=== PATIENT | female | born 1985 | race Caucasian/White ===

== ENCOUNTER → 2020-07-14 09:30 | Outpatient (BNVA) | payer OTHER, SELFPAY | PROVIDERS: Family Provider Family Medicine; Visit Provider Obstetrics & Gynecology | DX: Z30.017 Encounter for initial prescription of implantable subdermal contraceptive (principal) | CPT/HCPCS: 81025 ==

== ENCOUNTER 2021-08-27 15:33 | Outpatient (CLI) | payer BC, SELFPAY ==
[2021-08-27 16:41] LABS: HCG Quantitative 2.08 mIU/mL
== END 2021-08-27 15:34 | disposition home or self-care (01) ==
PROVIDERS: PCP Family Medicine; Visit Provider Obstetrics & Gynecology
DX: N92.0 Excessive and frequent menstruation with regular cycle (principal)
CPT/HCPCS: 36415; 84702

== ENCOUNTER 2021-12-05 11:08 | Emergency (ER) | payer SELFPAY ==
[2021-12-05 11:53] VITALS: BP 118/74; PULSE 78; RESP 18; TEMP 36.8; O2SAT 99; BMI 39.2
--- NOTE | 2021-12-05 12:08 | ED_ITS ---
HPI - General Adult General: Chief complaint: General Medical Stated complaint: back and right hip pain Time Seen by Provider: 12/05/21 11:59 History of Present Illness: HPI narrative: Patient slipped is noted today felt a twist in her back and now she is got pain radiates down her right hip down to her ankle right side denies any other injuries and denies any significant health problems. MD complaint: Sciatica Onset (ago): day(s) Relieving factors: immobilization Exacerbating factors: movement Associated symptoms: Reports no associated symptoms; Deny chest pain, dyspnea, headache(s), nausea, rash or vomiting Review of Systems Const: Denies: fever(s), chills or body aches Eyes: Denies: change in vision or blurry vision ENMT: Denies: throat pain or nasal congestion Card: Denies: chest pain or dyspnea on exertion Resp: Denies: dyspnea, productive cough or non-productive cough GI: Denies: abdominal pain, nausea or vomiting Musc: Reports: back pain; Denies: extremity pain Skin/Breast: Denies: rash Neuro: Denies: headache(s) Psych: Denies: anxiety or depression Jaylon/Lymph: Denies: easy bruising PFSH ED PFSH: Medical History Contraception management Nexplanon insertion Surgical History H/O JEFRY Donohue- approximately 2010 S/P section Family History Brother Diabetes Mother Hypertension Other Clotting disorder Denies family history of Colon cancer Ovarian cancer Heart disease Hyperlipidemia Breast cancer Anesthesia complication Bleeding disorder Uterine cancer Thyroid condition Stroke Social History Smoking and tobacco status: never smoked Alcohol intake: current Alcohol intake frequency: holidays/special occasions only Alcohol type: wine Female Reproductive History: Date of last menstrual period: 11/22/21 Physical Exam Const: COMMON NORMALS: no acute distress, average body habitus and patient oriented x3 HENMT: COMMON NORMALS: normocephalic HEAD & SCALP: normal to inspection and normocephalic FACE & SINUS: normal facial exam Eye: COMMON NORMALS: conjunctivae normal GENERAL EYE: appearance normal, both eyes and all related structures CONJUNCTIVA: Yes conjunctivae normal Neck/C-Spine: COMMON NORMALS: no JVD Chest: COMMONS NORMALS: normal inspection of the chest Resp: COMMON NORMALS: normal respiratory effort Cardio: COMMON NORMALS: no JVD GI: INSPECTION: Yes normal to inspection Back/Pelvis: LUMBAR SPINE/LOWER BACK: Yes paraspinal muscle tenderness Lumbar paraspinal muscle tenderness: right OTHER: Tenderness to the sciatic nerve ranging from the buttock down across the thigh and no tenderness noted in the calf area. Patient does have pain with getting up from the chair and with leaning forward denies any numbness. Extremity: COMMON NORMALS: normal to inspection and full ROM Neuro: COMMON NORMALS: patient oriented x3 Course Vital Signs: Vital signs: Vital Signs Temperature 98.2 F 12/05/21 11:53 Pulse Rate 78 12/05/21 11:53 Respiratory Rate 18 12/05/21 11:53 Blood Pressure 118/74 12/05/21 11:53 Pulse Oximetry 99 12/05/21 11:53 Discharge Plan Discharge Patient Disposition: Home Clinical Impression: Acute lumbar radiculopathy Condition: Stable Prescriptions: New prednisone 20 mg tablet 20 mg PO DAILY Qty: 7 RF: 0 Celebrex 100 mg capsule 100 mg PO BID Qty: 20 RF: 0 cyclobenzaprine 5 mg tablet 5 mg PO TID PRN (Reason: muscle spasm) Qty: 10 RF: 0 No Action Nexplanon 68 mg implant subdermal RF: 0 lidocaine-epinephrine (PF) 2 %-1:200,000 solution 3 ml SUBCUT ONCE Qty: 20 RF: 0 povidone-iodine [Betadine Swabsticks] 10 % swab 1 applic topical ONCE Qty: 150 RF: 0 Discharge Orders: Discharge ED (Routine); Ordered 12/05/21 Ordered By: Valentin Clancy Referrals: Desmond Crowley MD [Primary Care Provider] - Discharge Diet: Usual diet Discharge Activity: Increase activity as tolerated Patient Instructions: Lumbar Radiculopathy (ED) Activity Restrictions/Additional Instructions: Follow-up with medical provider as directed. Take medications as prescribed. Return to the ER or your medical provider if condition worsens. Please read and understand discharge instructions. If any questions ask please. Take cyclobenzaprine for muscle spasms, Celebrex for pain and prednisone for inflammation in the low back. Can apply ice and then start alternate heat and ice after 36 hours. Possible visit chiropractor might be of benefit. No lifting over 10 pounds for next 3 to 4 weeks. 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
[2021-12-05 12:47] VITALS: BP 121/72; PULSE 77; RESP 18; TEMP 36.8; O2SAT 99
== END 2021-12-05 12:48 | disposition home or self-care (01) ==
PROVIDERS: Emergency Provider Nurse Practitioner Family; PCP Family Medicine
DX: M54.16 Radiculopathy, lumbar region (principal)
CPT/HCPCS: 99282

== ENCOUNTER 2022-05-08 17:56 | Emergency (ER) | payer BC, MEDICAID, SELFPAY ==
[2022-05-08 18:59] VITALS: BP 132/83; PULSE 90; RESP 18; TEMP 36.7; O2SAT 98; BMI 35.6
--- NOTE | 2022-05-08 20:11 | USR_ITS ---
PROCEDURE INFORMATION: Exam: US , Limited and US Duplex Artery or Vein, Ovaries, Limited Exam date and time: 05/08/2022 10:33 PM Age: 36 years old Clinical indication: Lmp or gestational age (in weeks): 8 weeks; Other: Spotting / cramping; ; Additional info: Vag bleeding TECHNIQUE: Imaging protocol: Real-time ultrasound of the maternal uterus with image documentation. Exam focused on the clinical indication. Real-time duplex ultrasound scan of the arterial or venous flow of the ovaries with B-mode, color Doppler flow and spectral waveform analysis, limited duplex. COMPARISON: No relevant prior studies available. FINDINGS: Gestation: Single live intrauterine gestation. Morphologically normal gestational sac, yolk sac and suboptimally visualized pole. heart rate: 131 beats per minute. Placenta: No subchorionic hemorrhage. BIOMETRY: Gestational age (AUA): 7 weeks 6 days by crown-rump length MATERNAL: Uterus: The uterus is anteverted. Uterine contours are normal. Right ovary/adnexa: The right ovary is morphologically normal. There is normal blood flow in the right ovary. The right ovary measures 3.6 x 3.3 x 2.1 cm. Left ovary/adnexa: The left ovary is morphologically normal. There is normal blood flow in the left ovary. The left ovary measures 5.1 x 3.7 x 1.8 cm. Urinary bladder: The urinary bladder is unremarkable. US/US OB limited [id number] IMPRESSION: 1. Single live intrauterine gestation of 7 weeks 6 days. No apparent complications. 2. Normal ovaries.
--- NOTE | 2022-05-08 21:06 | W.ED.GENADLT ---
Documented by User: Mir Norris MD 05/20/22 16:26 HPI - General Adult General: Chief complaint: Vaginal Bleeding Stated complaint: Wekks Preg,Spotting\Mild Cramping Low Grade Fever Time Seen by Provider: 05/08/22 20:11 History of Present Illness: Patient is a 36-year-old female G3, P1 at 8 weeks by LMP who presents the emergency room with 1 day of vaginal spotting and cramps. Patient tells me that she has had 1 prior miscarriages. Patient denies any passage of clots or heavy bleeding. Patient reports mild spotting around 1 PM. Patient denies any pelvic contractions. Patient denies any diarrhea melena/menses, complaints at this time. Patient has no nausea or vomiting, abdominal pain, or new vaginal discharge. Denies any cough, runny nose sore throat, chest pain or shortness breath. Onset: 12 hrs ago Duration:12 hrs Location:home Severity:moderate Associated symptoms: Deny chest pain, dyspnea, nausea, rash, palpitations or vomiting Review of Systems Const: Denies: fever(s) or chills Eyes: Denies: change in vision ENMT: Denies: mouth pain Card: Denies: chest pain or palpitations Resp: Denies: dyspnea or non-productive cough GI: Denies: abdominal pain, nausea, vomiting or diarrhea : Reports: other (pelvic cramps, vaginal spotting); Denies: dysuria Musc: Denies: extremity pain Skin/Breast: Denies: rash or new lesions Neuro: Denies: weakness in extremities Psych: Reports: other (Normal mood) Jaylon/Lymph: Denies: easy bruising PFSH ED PFSH: Medical History Contraception management Nexplanon insertion Surgical History H/O JEFRY Donohue- approximately 2010 S/P section Family History Brother Diabetes Mother Hypertension Other Clotting disorder Denies family history of Colon cancer Ovarian cancer Heart disease Hyperlipidemia Breast cancer Anesthesia complication Bleeding disorder Uterine cancer Thyroid condition Stroke Social History Smoking and tobacco status: never smoked Alcohol intake: current Alcohol intake frequency: holidays/special occasions only Alcohol type: wine Female Reproductive History: Date of last menstrual period: 11/22/21 Physical Exam Const: COMMON NORMALS: alert HENMT: COMMON NORMALS: atraumatic HEAD & SCALP: atraumatic MOUTH: moist mucous membranes not abnormal Eye: COMMON NORMALS: EOMs intact bilaterally and conjunctivae normal CONJUNCTIVA: Yes conjunctivae normal Neck/C-Spine: COMMON NORMALS: full ROM and supple Resp: COMMON NORMALS: normal respiratory effort and clear to auscultation bilaterally AUSCULTATION: clear to auscultation bilaterally Cardio: COMMON NORMALS: regular rate RATE: regular rate GI: COMMON NORMALS: Soft to palpation and non-tender PALPATION: Yes Soft to palpation OTHER: No focal TTP. NO guarding rebound, guarding, rigidity. No CVA tenderness to percussion. Neg White/Neg McBurney's point tenderness, no suprabupic tenderness to palpation. Extremity: COMMON NORMALS: full ROM Neuro: SENSORIUM/ORIENTATION: Yes alert MOTOR EXAM: No Abnormal motor strength present and Other motor observations present (no focal motor deficits) Psych: COMMON NORMALS: speech normal SPEECH: Yes normal speech MOOD & AFFECT: Yes euthymic mood Course Vital Signs: Vital signs: Vital Signs Temperature 98.0 F 05/08/22 18:59 Pulse Rate 77 05/09/22 00:30 Respiratory Rate 18 05/09/22 00:30 Blood Pressure 132/56 05/09/22 00:30 Pulse Oximetry 100 05/09/22 00:30 MDM - General Adult Medical Decision Making 36 at 8weeks by LMP the emergency room for vaginal spotting and pelvic cramps. I offered offered pelvic exam however patient declined. Patient is hemodynamically stable with no focal abdominal tenderness palpation. Hemoglobin 13.4 today. Patient's A+ from previous blood work and will not need RhoGAM. Ultrasound showed _. Lab Data : 05/08/22 21:30 05/08/22 21:30 Radiology Impressions Obstetrics Ultrasound 05/08/22 20:11 IMPRESSION: 1. Single live intrauterine gestation of 7 weeks 6 days. No apparent complications. 2. Normal ovaries. Laboratory Results WBC 11.6 10^3/uL (4.0-10.0) H 05/08/22 21:30 RBC 4.24 10^6/uL (4.1-5.3) 05/08/22 21: Hgb 13.4 g/dL (11.5-15.3) 05/08/22 21: Hct 38.9 % (37.0-47.0) 05/08/22 21: MCV 91.7 fl (81-99) 05/08/22 21: MCH 31.6 pg (28.0-34.0) 05/08/22: MCHC 34.4 g/dL (30.0-36.0) 05/08/22: RDW 12.7 % (12.1-15.1) 05/08/22: Plt Count 236 10^3/cmm (130-400) 05/08/22: MPV 10.6 fL (7.4-10.4) H 05/08/22 21: Neut % (Auto) 70.6 % 05/08/22: Lymph % (Auto) 19.4 % 05/08/22: [place] % (Auto) 8.9 % 05/08/22: Eos % (Auto) 0.4 % 05/08/22: Baso % (Auto) 0.3 % 05/08/22: Neut # (Auto) 8.20 10^3/uL (1.8-7.7) H 05/08/22: Lymph # (Auto) 2.3 10^3/uL (0.8-4.8) 05/08/22: [place] # (Auto) 1.0 10^3/uL (0.2-0.9) H 05/08/22 21: Eos # (Auto) 0.1 10^3/uL (0.0-0.8) 05/08/22: Baso # (Auto) 0.0 10^3/uL (0.0-0.1) 05/08/22: Nucleated RBC % (auto) 0 % 05/08/22: Nucleated RBCs # 0.0 /100WBC 05/08/22: Sodium 135 mmol/L (136-145) L 05/08/22: Potassium 3.3 mmol/L (3.5-5.1) L 05/08/22 21:30 Chloride 102 mmol/L (98-107) 05/08/22 21: Carbon Dioxide 22 mmol/L (22-29) 05/08/22 21:30 Anion Gap 14.3 (5-19) 05/08/22 21:30 BUN 7 mg/dL (6-20) 05/08/22 21: Creatinine 0.6 mg/dL (0.5-0.9) 05/08/22 21: GFR Calculation 114.4 mL/min (90-130) 05/08/22 21: Glucose 100 mg/dL (65-115) 05/08/22: Calculated Osmolality 278 mOsm/kg (285-295) L 05/08/22: Calcium 8.8 mg/dL (8.5-10.5) 05/08/22: Total Bilirubin 0.4 mg/dL (0.15-1.2) 05/08/22: AST 21 U/L (0-32) 05/08/22: ALT 49 U/L (0-33) H 05/08/22 21: Alkaline Phosphatase 68 IU/L (35-105) 05/08/22: Total Protein 7.1 g/dL (6.6-8.7) 05/08/22: Albumin 3.9 g/dL (3.5-5.2) 05/08/22: Globulin 3.2 g/dL (1.3-4.6) 05/08/22: Lipase 34 U/L (13-60) 05/08/22 21:30 Ser , Semi-Qnt 00131.00 mIU/mL 05/08/22 21:30 Blood Type A Positive 05/08/22 21:30 Rho(D) Type Positive 05/08/22 21: Discharge Plan Discharge Patient Disposition: Home Clinical Impression: Pelvic cramping, Vaginal bleeding before 22 weeks gestation Condition: Stable Prescriptions: No Action lidocaine-epinephrine (PF) 2 %-1:200,000 solution 3 ml SUBCUT ONCE Qty: 20 0RF povidone-iodine [Betadine Swabsticks] 10 % swab 1 applic topical ONCE Qty: 150 0RF amoxicillin-pot clavulanate 875-125 mg tablet 1 tab PO BID Qty: 14 0RF budesonide 90 mcg/actuation aerosol powdr breath activated 1 inh inhalation BID Qty: 1 0RF Discharge Orders: Discharge ED (Routine); Ordered 05/09/22 Ordered By: Clayton Rivera Referrals: Desmond Crowley MD [Primary Care Provider] - Discharge Diet: Advance as tolerated Discharge Activity: Increase activity as tolerated Activity Restrictions/Additional Instructions: Come back if you have any new or concerning issues. Please follow-up with your OB provider for further assessment of your symptoms today. Can back to the emergency room if you notice any heavy bleeding, worsening cramps, or any new concerning complaints. Stand Alone Forms: Work/School Release Sign Out Sign Out Data: Patient Sign Out occurred on 05/08/22 at 22:48. Patient's care was discussed, and care was transferred from to BARBER Jaquez. Coding Level of Care Code ED Conveyor System Operator for Chg Fwd Exam Comprehensive Documented by User: BARBER Jaquez 05/09/22 11:18 HPI - General Adult General: Chief complaint: Vaginal Bleeding Stated complaint: Wekks Preg,Spotting\Mild Cramping Low Grade Fever Time Seen by Provider: 05/08/22 20:11 [facility] ED PFSH: Medical History Contraception management Nexplanon insertion Surgical History H/O JEFRY Donohue- approximately 2010 S/P section Family History Brother Diabetes Mother Hypertension Other Clotting disorder Denies family history of Colon cancer Ovarian cancer Heart disease Hyperlipidemia Breast cancer Anesthesia complication Bleeding disorder Uterine cancer Thyroid condition Stroke Social History Smoking and tobacco status: never smoked Alcohol intake: current Alcohol intake frequency: holidays/special occasions only Alcohol type: wine Course Vital Signs: Vital signs: Vital Signs Temperature 98.0 F 05/08/22 18:59 Pulse Rate 77 05/09/22 00:30 Respiratory Rate 18 05/09/22 00:30 Blood Pressure 132/56 05/09/22 00:30 Pulse Oximetry 100 05/09/22 00:30 MDM - General Adult Medical Decision Making 36 at 8weeks by LMP the emergency room for vaginal spotting and pelvic cramps. I offered offered pelvic exam however patient declined. Patient is hemodynamically stable with no focal abdominal tenderness palpation. Hemoglobin 13.4 today. Patient's A+ from previous blood work and will not need RhoGAM. Ultrasound showed single live intrauterine with a gestation of 7 weeks and 6 days. No complications seen and normal ovaries. Patient was stable for discharge home and diagnosed with pelvic cramping and vaginal bleeding before 22 weeks gestation. She was told to follow-up with her OB doctor within the next week for reevaluation. Return ED precautions given. Patient understood and agreed with plan. Lab Data I reviewed the patient's lab results. : 05/08/22 21:30 05/08/22 21:30 Radiology Impressions Obstetrics Ultrasound 05/08/22 20:11 IMPRESSION: 1. Single live intrauterine gestation of 7 weeks 6 days. No apparent complications. 2. Normal ovaries. Laboratory Results WBC 11.6 10^3/uL (4.0-10.0) H 05/08/22 21: RBC 4.24 10^6/uL (4.1-5.3) 05/08/22 21:30 Hgb 13.4 g/dL (11.5-15.3) 05/08/22 21:30 Hct 38.9 % (37.0-47.0) 05/08/22 21: MCV 91.7 fl (81-99) 05/08/22 21:30 MCH 31.6 pg (28.0-34.0) 05/08/22 21:30 MCHC 34.4 g/dL (30.0-36.0) 05/08/22 21: RDW 12.7 % (12.1-15.1) 05/08/22 21: Plt Count 236 10^3/cmm (130-400) 05/08/22 21: MPV 10.6 fL (7.4-10.4) H 05/08/22 21: Neut % (Auto) 70.6 % 05/08/22 21: Lymph % (Auto) 19.4 % 05/08/22 21: [place] % (Auto) 8.9 % 05/08/22: Eos % (Auto) 0.4 % 05/08/22: Baso % (Auto) 0.3 % 05/08/22: Neut # (Auto) 8.20 10^3/uL (1.8-7.7) H 05/08/22: Lymph # (Auto) 2.3 10^3/uL (0.8-4.8) 05/08/22: [place] # (Auto) 1.0 10^3/uL (0.2-0.9) H 05/08/22: Eos # (Auto) 0.1 10^3/uL (0.0-0.8) 05/08/22: Baso # (Auto) 0.0 10^3/uL (0.0-0.1) 05/08/22: Nucleated RBC % (auto) 0 % 05/08/22: Nucleated RBCs # 0.0 /100WBC 05/08/22: Sodium 135 mmol/L (136-145) L 05/08/22: Potassium 3.3 mmol/L (3.5-5.1) L 05/08/22: Chloride 102 mmol/L (98-107) 05/08/22: Carbon Dioxide 22 mmol/L (22-29) 05/08/22: Anion Gap 14.3 (5-19) 05/08/22: BUN 7 mg/dL (6-20) 05/08/22: Creatinine 0.6 mg/dL (0.5-0.9) 05/08/22: GFR Calculation 114.4 mL/min (90-130) 05/08/22: Glucose 100 mg/dL (65-115) 05/08/22: Calculated Osmolality 278 mOsm/kg (285-295) L 05/08/22 21:30 Calcium 8.8 mg/dL (8.5-10.5) 05/08/22 21:30 Total Bilirubin 0.4 mg/dL (0.15-1.2) 05/08/22 21:30 AST 21 U/L (0-32) 05/08/22 21:30 ALT 49 U/L (0-33) H 05/08/22 21:30 Alkaline Phosphatase 68 IU/L (35-105) 05/08/22 21: Total Protein 7.1 g/dL (6.6-8.7) 05/08/22 21: Albumin 3.9 g/dL (3.5-5.2) 05/08/22 21: Globulin 3.2 g/dL (1.3-4.6) 05/08/22 21: Lipase 34 U/L (13-60) 05/08/22 21:30 Ser , Semi-Qnt 08649.00 mIU/mL 05/08/22 21:30 Blood Type A Positive 05/08/22 21:30 Rho(D) Type Positive 05/08/22 21:30 Discharge Plan Discharge Patient Disposition: Home Clinical Impression: Pelvic cramping, Vaginal bleeding before 22 weeks gestation Condition: Stable Prescriptions: No Action lidocaine-epinephrine (PF) 2 %-1:200,000 solution 3 ml SUBCUT ONCE Qty: 20 0RF povidone-iodine [Betadine Swabsticks] 10 % swab 1 applic topical ONCE Qty: 150 0RF amoxicillin-pot clavulanate 875-125 mg tablet 1 tab PO BID Qty: 14 0RF budesonide 90 mcg/actuation aerosol powdr breath activated 1 inh inhalation BID Qty: 1 0RF Discharge Orders: Discharge ED (Routine); Ordered 05/09/22 Ordered By: Clayton Rivera Referrals: Desmond Crowley MD [Primary Care Provider] - Discharge Diet: Advance as tolerated Discharge Activity: Increase activity as tolerated Activity Restrictions/Additional Instructions: Come back if you have any new or concerning issues. Please follow-up with your OB provider for further assessment of your symptoms today. Can back to the emergency room if you notice any heavy bleeding, worsening cramps, or any new concerning complaints. Stand Alone Forms: Work/School Release Sign Out Sign Out Data: Patient Sign Out occurred on 05/08/22 at 22:48. Patient's care was discussed, and care was transferred from to BARBER Jaquez. Coding Level of Care Code ED Conveyor System Operator for Chg Fwd Exam Comprehensive
[2022-05-08 21:42] LABS: Basophils % 0.3 %; Eosinophils # 0.1 10^3/uL (0.0-0.8); Eosinophils % 0.4 %; Hematocrit 38.9 % (37.0-47.0); Hemoglobin 13.4 g/dL (11.5-15.3); Lymphocytes # 2.3 10^3/uL (0.8-4.8); Lymphocytes % 19.4 %; Mean Corpuscular HGB Conc 34.4 g/dL (30.0-36.0); Mean Corpuscular Hemoglobin 31.6 pg (28.0-34.0); Mean Corpuscular Volume 91.7 fl (81-99); Mean Platelet Volume 10.6 fL (7.4-10.4); Monocytes % 8.9 %; Neutrophils % 70.6 %; Nucleated Red Blood Cells % 0 %; Platelet Count 236 10^3/cmm (130-400); Red Blood Count 4.24 10^6/uL (4.1-5.3); Red Cell Distribution Width 12.7 % (12.1-15.1); White Blood Count 11.6 10^3/uL (4.0-10.0)
[2022-05-08 22:21] LABS: Alanine Aminotransferase 49 U/L (0-33); Albumin Level 3.9 g/dL (3.5-5.2); Alkaline Phosphatase 68 IU/L (35-105); Anion Gap 14.3 (5-19); Aspartate Amino Transferase 21 U/L (0-32); Blood Urea Nitrogen 7 mg/dL (6-20); Calcium 8.8 mg/dL (8.5-10.5); Carbon Dioxide 22 mmol/L (22-29); Chloride 102 mmol/L (98-107); Globulin 3.2 g/dL (1.3-4.6); Glomerular Filtration Rate 114.4 mL/min (90-130); Glucose 100 mg/dL (65-115); Lipase 34 U/L (13-60); Osmolality Calculated 278 mOsm/kg (285-295); Potassium 3.3 mmol/L (3.5-5.1); Sodium 135 mmol/L (136-145); Total Bilirubin 0.4 mg/dL (0.15-1.2); Total Protein 7.1 g/dL (6.6-8.7)
[2022-05-09 00:30] VITALS: BP 132/56; PULSE 77; RESP 18; O2SAT 100
== END 2022-05-09 00:31 | disposition home or self-care (01) ==
PROVIDERS: Emergency Medicine; Emergency Provider Physician Assistant; PCP Family Medicine
DX: O20.9 Hemorrhage in early pregnancy, unspecified (principal); O26.891 Other specified pregnancy related conditions, first trimester; R10.2 Pelvic and perineal pain; Z3A.08 8 weeks gestation of pregnancy
CPT/HCPCS: 76815; 80053; 83690; 84702; 85025; 86900; 99283

== ENCOUNTER 2022-05-12 10:06 | Emergency (ER) | payer BC, MEDICAID, SELFPAY ==
[2022-05-12 10:10] VITALS: PULSE 101; RESP 18; TEMP 36.3; O2SAT 97; BMI 34.4
--- NOTE | 2022-05-12 11:05 | XR_ITS ---
WS: [id number] XR chest 1V portable [id number] REASON FOR EXAM: chest pain FINDINGS: The heart and mediastinum are within normal limits. Calcified granulomatous disease in both hemithoraces. No acute pulmonary parenchymal or pleural abnormality. No significant abnormality of the bony thorax. XR/XR chest 1V portable [id number] IMPRESSION: No acute chest abnormality.
--- NOTE | 2022-05-12 11:06 | ED_ITS ---
HPI - URI/Sore Throat General: Chief Complaint: Nausea/Vomiting/Diarrhea Stated Complaint: cough, n/v Time Seen by Provider: 05/12/22 10:10 Source: patient Mode of arrival: ambulatory Limitations: no limitations History of Present Illness: Patient is a 36-year-old female who presents to ED today with complaints of productive cough over the past 2 weeks. She is also having nasal congestion and sinus pain. Patient states she was seen at the walk-in clinic several days ago and was given instructions for conservative treatment as well as safe medication she can take during as she is 8 weeks . She states that she is continuing to have phlegm/sputum production and states when she coughs it will then make her nauseous and gag and throw up. She is not having any episodes of nausea or vomiting apart from when this was triggered by coughing and phlegm. She is not having any abdominal pain. Bowel movements been normal. No fevers. OB is Dr. Turner. elicited complaint: cough, nasal congestion and sinus pain Onset (ago): week(s) (2 weeks) Consistency: constant Severity: moderate Description of mucous: yellow and green Able to tolerate fluids by mouth: Yes Exacerbating factors: other Relieving factors: nothing Associated symptoms: Reports congestion, cough, nasal congestion, nausea, sinus pain and vomiting (when she gets choked up on phlegm; causes nausea); Deny abdominal pain, chills, chest pain, diarrhea, ear or mastoid pain, fever(s) or headache(s) Treatments prior to arrival: cold medicine Review of Systems Const: Denies: fever(s), chills, body aches, fatigue or malaise Eyes: Denies: change in vision ENMT: Reports: nasal discharge, nasal congestion and sinus pain; Denies: throat pain, odynophagia or ear or mastoid pain Card: Denies: chest pain, palpitations, lightheadedness, syncope or pre- syncope Resp: Reports: productive cough, change in phlegm color and chest congestion; Denies: dyspnea, wheezing or hemoptysis GI: Reports: nausea and vomiting (when she gets choked up on phlegm; causes nausea); Denies: abdominal pain or diarrhea : Denies: flank pain, dysuria or hematuria Musc: Denies: neck pain, back pain, extremity pain or joint pain Skin/Breast: Denies: rash Neuro: Denies: headache(s) PFSH ED PFSH: Medical History Contraception management Nexplanon insertion Surgical History H/O JEFRY Donohue- approximately 2010 S/P section Family History Brother Diabetes Mother Hypertension Other Clotting disorder Denies family history of Colon cancer Ovarian cancer Heart disease Hyperlipidemia Breast cancer Anesthesia complication Bleeding disorder Uterine cancer Thyroid condition Stroke Social History Smoking and tobacco status: never smoked Alcohol intake: current Alcohol intake frequency: holidays/special occasions only Alcohol type: wine Female Reproductive History: Date of last menstrual period: 11/22/21 Physical Exam Const: COMMON NORMALS: no acute distress, patient oriented x3, no limitations, alert and well nourished GENERAL APPEARANCE: cooperative ORIENTATION/CONSCIOUSNESS: Yes awake, Yes oriented to person, Yes oriented to place and Yes oriented to time HENMT: COMMON NORMALS: normocephalic, atraumatic and Normal external nose present HEAD & SCALP: normal to inspection, normocephalic and atraumatic FACE & SINUS: normal facial exam NOSE: Normal external nose present Eye: GENERAL EYE: appearance normal, both eyes and all related structures Neck/C-Spine: COMMON NORMALS: full ROM and no lymphadenopathy Resp: COMMON NORMALS: normal respiratory effort and clear to auscultation bilaterally AUSCULTATION: clear to auscultation bilaterally Cardio: COMMON NORMALS: regular rate and regular rhythm RATE: regular rate RHYTHM: regular rhythm Neuro: COMMON NORMALS: patient oriented x3 SENSORIUM/ORIENTATION: Yes alert, Yes oriented to person, Yes oriented to place and Yes oriented to time Skin: COMMON NORMALS: no rashes or lesions noted GENERAL SKIN EXAM: no rashes or lesions noted Course Vital Signs: Vital signs: Vital Signs Temperature 97.4 F L 05/12/22 10:10 Pulse Rate 101 H 05/12/22 10:10 Respiratory Rate 18 05/12/22 10:10 Pulse Oximetry 97 05/12/22 10:10 MDM - URI/Sore Throat Medical Decision Making Patient is a 36-year-old female at 8 weeks here for concerns of productive cough, nasal congestion and sinus pain. Patient states emphysema present for about 2 weeks now and do not seem to be improving. She feels like the sputum/phlegm is worsening and is now causing her to gag and vomit. I think it is reasonable at this time to place her on some Augmentin. Recommend continuing Robitussin as needed for the cough. Also discussed conservative therapies such as honey, lemon, elderberry syrup, humidifier etc to help loosen/thin mucus. Patient is requesting a primary care provider as she does not have one. Referral has been placed for this. Return to ED precautions verbally discussed. Discharge Plan Discharge Patient Disposition: Home Clinical Impression: Bronchitis Condition: Stable Prescriptions: New amoxicillin-pot clavulanate 875-125 mg tablet 1 tab PO BID Qty: 14 0RF No Action lidocaine-epinephrine (PF) 2 %-1:200,000 solution 3 ml SUBCUT ONCE Qty: 20 0RF povidone-iodine [Betadine Swabsticks] 10 % swab 1 applic topical ONCE Qty: 150 0RF Discharge Orders: Discharge ED (Routine); Ordered 05/12/22 Ordered By: Meliza Gonzalez Referrals: Dsemond Crowley MD [Primary Care Provider] - Coding Level of Care Code ED Soa Integration Developer for Chg Fwd Exam Detailed
[2022-05-12 12:45] VITALS: BP 115/67; PULSE 80; RESP 17; O2SAT 100
--- NOTE | 2022-05-12 14:03 | PC.SOCIAL ---
Addendum entered by Altagracia Lafleur 05/27/22 14:28: Patients appointment was cancelled Original Note: PCP Appointment Patient notified of appointment with Dr. Mensah scheduled for May 25 at 08:00.
[2022-05-12 14:48] LABS: Adenovirus Not Detected (NOT DETECT); Chlamydia Pneumoniae Not Detected (NOT DETECT); Coronavirus 229E,HKU1,NL63,OC4 Not Detected (NOT DETECT); Human Metapneumovirus Not Detected (NOT DETECT); Human Rhinovirus/Enterovirus Not Detected (NOT DETECT); Influenza A Not Detected (NOT DETECT); Influenza A H1 Not Detected (NOT DETECT); Influenza A H1-2009 Not Detected (NOT DETECT); Influenza A H3 Not Detected (NOT DETECT); Influenza B Not Detected (NOT DETECT); Mycoplasma Pneumoniae Not Detected (NOT DETECT); Parainfluenza Virus Type 1 Not Detected (NOT DETECT); Parainfluenza Virus Type 2 Not Detected (NOT DETECT); Parainfluenza Virus Type 3 Not Detected (NOT DETECT); Parainfluenza Virus Type 4 Not Detected (NOT DETECT); Respiratory Syncytial Virus A Not Detected (NOT DETECT); Respiratory Syncytial Virus B Not Detected (NOT DETECT); SARS-COV-2 Not Detected (NOT DETECT)
== END 2022-05-12 12:29 | disposition home or self-care (01) ==
PROVIDERS: Emergency Provider Physician Assistant; PCP Family Medicine
DX: J40 Bronchitis, not specified as acute or chronic (principal); Z20.822 Contact with and (suspected) exposure to COVID-19
CPT/HCPCS: 71045; 87635; 99283

== ENCOUNTER 2022-05-13 07:41 | Outpatient (CLI) | payer BC, MEDICAID, SELFPAY ==
--- NOTE | 2022-05-13 07:46 | US_ITS ---
WS: [id number] EARLY OBSTETRICAL ULTRASOUND (<14 WEEKS). HISTORY: Z34.90 - Encounter for supervision of normal COMPARISON: 05/08/2022 Single intrauterine gestational sac is identified. Cardiac activity at 157 BPM. [place]-rump length tim sures 1.1 cm which corresponds to a gestation of 7w1d. Normal-appearing yolk sac and amnion demonstra santos. No subchorionic hemorrhage. No free fluid. Normal size ovaries with no mass. Note: Please note there is a discrepancy of age as compared to the prior study of 05/08/2022. Th e gestational age associated with today's examination is more accurate. The measurements on the prior study were not accurate and included more than just the pole. US/US OB transvaginal [id number] IMPRESSION: 1. Single intrauterine gestation of 7 weeks 1 day with an EDC of 12/29/2022. 2. Normal cardiac activity.
== END 2022-05-13 07:42 | disposition home or self-care (01) ==
PROVIDERS: PCP Family Medicine; Visit Provider Obstetrics & Gynecology
DX: Z34.90 Encounter for supervision of normal pregnancy, unspecified, unspecified trimester (principal)
CPT/HCPCS: 76817

== ENCOUNTER → 2022-05-23 14:27 | Outpatient (BNVA) | payer BC, MEDICAID, SELFPAY | PROVIDERS: PCP Family Medicine; Visit Provider Obstetrics & Gynecology | DX: Z34.90 Encounter for supervision of normal pregnancy, unspecified, unspecified trimester (principal) | CPT/HCPCS: 80307; 81000; 85027; 86592; 86762; 86803; 86850; 86900; 87086; 87340; 87806 ==

== ENCOUNTER → 2022-06-03 00:01 | Outpatient (BNVA) | payer BC, MEDICAID, SELFPAY | PROVIDERS: PCP Family Medicine; Visit Provider Obstetrics & Gynecology | DX: Z34.91 Encounter for supervision of normal pregnancy, unspecified, first trimester (principal) | CPT/HCPCS: 81003; 87491; 87591; 87624 ==

== ENCOUNTER → 2022-07-15 15:45 | Outpatient (BNVA) | payer BC, MEDICAID, SELFPAY | PROVIDERS: PCP Family Medicine; Visit Provider Nurse Practitioner Women's Health | DX: Z34.90 Encounter for supervision of normal pregnancy, unspecified, unspecified trimester (principal); O34.40 Maternal care for other abnormalities of cervix, unspecified trimester; Z98.890 Other specified postprocedural states; Z34.91 Encounter for supervision of normal pregnancy, unspecified, first trimester; O34.219 Maternal care for unspecified type scar from previous cesarean delivery | CPT/HCPCS: 81000 ==

== ENCOUNTER → 2022-07-28 16:17 | Outpatient (BNVA) | payer BC, MEDICAID, SELFPAY | PROVIDERS: PCP Family Medicine; Visit Provider Obstetrics & Gynecology | DX: Z36.86 Encounter for antenatal screening for cervical length (principal) | CPT/HCPCS: 76830 ==

== ENCOUNTER → 2022-08-12 14:56 | Outpatient (BNVA) | payer BC, MEDICAID, SELFPAY | PROVIDERS: PCP Family Medicine; Visit Provider Obstetrics & Gynecology | DX: Z36.87 Encounter for antenatal screening for uncertain dates (principal) | CPT/HCPCS: 76805; 76817 ==

== ENCOUNTER → 2022-08-15 15:12 | Outpatient (BNVA) | payer BC, MEDICAID, SELFPAY | PROVIDERS: PCP Family Medicine; Visit Provider Obstetrics & Gynecology | DX: Z34.90 Encounter for supervision of normal pregnancy, unspecified, unspecified trimester (principal) | CPT/HCPCS: 81000 ==

== ENCOUNTER → 2022-08-25 16:22 | Outpatient (BNVA) | payer BC, MEDICAID, SELFPAY | PROVIDERS: PCP Family Medicine; Visit Provider Obstetrics & Gynecology | DX: O26.879 Cervical shortening, unspecified trimester (principal); Z3A.00 Weeks of gestation of pregnancy not specified | CPT/HCPCS: 76817 ==

== ENCOUNTER → 2022-09-06 16:11 | Outpatient (BNVA) | payer BC, MEDICAID, SELFPAY | PROVIDERS: PCP Family Medicine; Visit Provider Obstetrics & Gynecology | DX: O99.342 Other mental disorders complicating pregnancy, second trimester (principal); F32.A Depression, unspecified; O34.219 Maternal care for unspecified type scar from previous cesarean delivery; O34.40 Maternal care for other abnormalities of cervix, unspecified trimester; Z98.890 Other specified postprocedural states; Z3A.00 Weeks of gestation of pregnancy not specified | CPT/HCPCS: 81000 ==

== ENCOUNTER → 2022-09-13 09:15 | Outpatient (BNVA) | payer BC, MEDICAID, SELFPAY | PROVIDERS: PCP Family Medicine; Visit Provider Obstetrics & Gynecology | DX: Z34.92 Encounter for supervision of normal pregnancy, unspecified, second trimester (principal) | CPT/HCPCS: 82950 ==

== ENCOUNTER → 2022-09-16 08:00 | Outpatient (BNVA) | payer BC, MEDICAID, SELFPAY | PROVIDERS: PCP Family Medicine; Visit Provider Obstetrics & Gynecology | DX: Z34.92 Encounter for supervision of normal pregnancy, unspecified, second trimester (principal) | CPT/HCPCS: 82951; 82952 ==

== ENCOUNTER 2022-10-13 09:23 | Outpatient (CLI) | payer BC, MEDICAID, SELFPAY ==
[2022-10-13 10:03] LABS: Hematocrit 37.8 % (37.0-47.0); Hemoglobin 12.7 g/dL (11.5-15.3); Mean Corpuscular HGB Conc 33.6 g/dL (30.0-36.0); Mean Corpuscular Hemoglobin 32.6 pg (28.0-34.0); Mean Corpuscular Volume 97.2 fl (81-99); Mean Platelet Volume 10.4 fL (7.4-10.4); Platelet Count 244 10^3/cmm (130-400); Red Blood Count 3.89 10^6/uL (4.1-5.3); Red Cell Distribution Width 14.3 % (12.1-15.1); White Blood Count 7.4 10^3/uL (4.0-10.0)
[2022-10-13 10:23] LABS: Protein Urine Neg (Negative); Urine Appearance Hazy (CLEAR); Urine Color Yellow (Yellow); pH Urine 6 (5-7)
[2022-10-13 10:24] LABS: Add Urine Microscopic? YES; Bilirubin Urine Neg (Negative); Blood Urine Neg (Negative); Glucose Urine UA 4+ (Normal); Ketones Urine Negative (Negative); Leukocyte Esterase Urine Negative (Negative); Nitrate Urine Negative (Negative); Urobilinogen Urine Neg (Negative)
[2022-10-13 10:32] LABS: Add Urine Culture? No; Bacteria Urine 2+ /hpf; Mucus Urine 1+ /hpf; RBC Urine RARE /hpf (0-2); Squamous Epithelial Cell Urine 25-40 /hpf (0-5); WBC Urine RARE /hpf (0-5)
== END 2022-10-13 09:24 | disposition home or self-care (01) ==
LOC: LAB 09:26
PROVIDERS: PCP Family Medicine; Visit Provider Obstetrics & Gynecology
DX: Z34.92 Encounter for supervision of normal pregnancy, unspecified, second trimester (principal)
CPT/HCPCS: 36415; 81001; 85027

== ENCOUNTER → 2022-10-25 14:00 | Outpatient (BNVA) | payer BC, MEDICAID, SELFPAY | PROVIDERS: PCP Family Medicine; Visit Provider Obstetrics & Gynecology | DX: Z34.90 Encounter for supervision of normal pregnancy, unspecified, unspecified trimester (principal) | CPT/HCPCS: 81000 ==

== ENCOUNTER → 2022-11-08 15:00 | Outpatient (BNVA) | payer BC, MEDICAID, SELFPAY | PROVIDERS: PCP Family Medicine; Visit Provider Obstetrics & Gynecology | DX: Z34.93 Encounter for supervision of normal pregnancy, unspecified, third trimester (principal) | CPT/HCPCS: 81000 ==

== ENCOUNTER → 2022-11-22 09:40 | Outpatient (BNVA) | payer BC, MEDICAID, SELFPAY | PROVIDERS: PCP Family Medicine; Visit Provider Obstetrics & Gynecology | DX: Z34.90 Encounter for supervision of normal pregnancy, unspecified, unspecified trimester (principal) | CPT/HCPCS: 81000 ==

== ENCOUNTER → 2022-11-29 11:17 | Outpatient (BNVA) | payer BC, MEDICAID, SELFPAY | PROVIDERS: PCP Family Medicine; Visit Provider Obstetrics & Gynecology | DX: Z34.90 Encounter for supervision of normal pregnancy, unspecified, unspecified trimester (principal) | CPT/HCPCS: 81000 ==

== ENCOUNTER → 2022-12-05 14:30 | Outpatient (BNVA) | payer BC, MEDICAID, SELFPAY | PROVIDERS: PCP Family Medicine; Visit Provider Obstetrics & Gynecology | DX: Z34.90 Encounter for supervision of normal pregnancy, unspecified, unspecified trimester (principal) | CPT/HCPCS: 87081 ==

== ENCOUNTER → 2022-12-12 13:51 | Outpatient (BNVA) | payer BC, MEDICAID, SELFPAY | PROVIDERS: PCP Family Medicine; Visit Provider Obstetrics & Gynecology | DX: O34.219 Maternal care for unspecified type scar from previous cesarean delivery (principal); O99.342 Other mental disorders complicating pregnancy, second trimester; F32.A Depression, unspecified; O34.40 Maternal care for other abnormalities of cervix, unspecified trimester; Z98.890 Other specified postprocedural states; Z3A.00 Weeks of gestation of pregnancy not specified | CPT/HCPCS: 81000 ==

== ENCOUNTER → 2022-12-14 10:26 | Outpatient (BNVA) | payer BC, MEDICAID, SELFPAY | PROVIDERS: PCP Family Medicine; Visit Provider Obstetrics & Gynecology | DX: Z36.87 Encounter for antenatal screening for uncertain dates (principal) | CPT/HCPCS: 76816 ==

== ENCOUNTER → 2022-12-20 08:31 | Outpatient (BNVA) | payer BC, MEDICAID, SELFPAY | PROVIDERS: PCP Family Medicine; Visit Provider Obstetrics & Gynecology | DX: Z34.90 Encounter for supervision of normal pregnancy, unspecified, unspecified trimester (principal) | CPT/HCPCS: 81000 ==

== ENCOUNTER 2022-12-22 05:04 | Inpatient (IN) | payer BC, MEDICAID, SELFPAY ==
--- NOTE | 2022-12-12 14:48 | P.ANESASSM_ITS ---
Pre-Anesthetic Assessment Height/Weight: Height 1.57 m Operation Date: 12/22/22 07:00 Proposed Procedures p Section Repeat 22292,O34.219(Not Applicable) - Chandra Turner MD Familial anesthetic complications: none Was Beta Ngoc taken within 24 hours: N/A Was Clonidine taken within 24 hours: N/A Social No alcohol and No tobacco Exam alert, oriented x 3, clear to auscultation bilaterally and regular rate & rhythm Airway Submandibular: within normal limits Cervical ROM: within normal limits Mallampati: Class II Dentition: chipped Neuropsych Depression Anesthetic Plan ASA status: 2 Anesthesia: Regional (specify below) (SAB for repeat C/S) Medications/Allergies Home Medications Medication Instructions Recorded Confirmed Last Taken Type acetaminophen 500 mg tablet 500 mg PO Q6H PRN 05/23/22 12/12/22 Unknown History (Tylenol Extra Strength) ascorbate calcium (vitamin C) 500 500 mg PO DAILY 05/23/22 12/12/22 Unknown History mg tablet doxylamine succinate 25 mg tablet 25 mg PO .at hs PRN 06/03/22 12/12/22 Unknown History (Unisom (doxylamine)) PNV 153-FA 400 mcg-om3 35 mg-dha tab PO 07/15/22 12/12/22 Unknown History 25 mg-epa 5 mg-fish oil chew tablet ( Gummies) sertraline 25 mg tablet (Zoloft) 25 mg PO DAILY Depression #60 tabs 10/25/22 12/12/22 Unknown Rx famotidine 20 mg tablet 20 mg PO BID 11/08/22 12/12/22 Unknown History Allergies Allergy/AdvReac Type Severity Reaction Status Date / Time No Known Allergies Allergy Verified 12/12/22 11:06 [facility] Anesthesia Medical History No pertinent past medical history neghx:htn,dm,thyroid,dvt/pe PCP: Surgical History H/O JEFRY Donohue- approximately 2010 S/P section Primary emergent section due to nonreassuring heart tones. Family History Brother Diabetes Mother Hypertension Other Clotting disorder Denies family history of Colon cancer Ovarian cancer Heart disease Hyperlipidemia Breast cancer Anesthesia complication Bleeding disorder Uterine cancer Thyroid condition Stroke Social History Smoking and tobacco status: never smoked Female Reproductive History Date of last menstrual period: 11/22/21 Data Anesthesia Cardiac Studies: No Data to Display
[2022-12-22] VITALS (33 sets, daily range): BP systolic 90–145; BP diastolic 52–87; PULSE 55–99; RESP 15–18; TEMP 35.8; O2SAT 98–100; BMI 51.4
[2022-12-22] MEDS: lactated ringers 1,000 ML 999 ML IV (05:35)
[2022-12-22 05:38] LABS: Basophils % 0.5 %; Eosinophils # 0.1 10^3/uL (0.0-0.8); Eosinophils % 0.6 %; Hematocrit 39.4 % (37.0-47.0); Hemoglobin 13.5 g/dL (11.5-15.3); Lymphocytes # 2.7 10^3/uL (0.8-4.8); Lymphocytes % 32.1 %; Mean Corpuscular HGB Conc 34.3 g/dL (30.0-36.0); Mean Corpuscular Hemoglobin 31.8 pg (28.0-34.0); Mean Corpuscular Volume 92.7 fl (81-99); Mean Platelet Volume 11.8 fL (7.4-10.4); Monocytes # 0.8 10^3/uL (0.2-0.9); Monocytes % 9.6 %; Neutrophils # 4.72 10^3/uL (1.8-7.7); Neutrophils % 57.1 %; Nucleated Red Blood Cells % 0 %; Platelet Count 207 10^3/cmm (130-400); Red Blood Count 4.25 10^6/uL (4.1-5.3); Red Cell Distribution Width 13.5 % (12.1-15.1); White Blood Count 8.3 10^3/uL (4.0-10.0)
[2022-12-22] MEDS: famotidine 20 mg/2 mL INJ IVP (06:43)
[2022-12-22] MEDS: metoclopramide 5 mg/mL SDV 2 mL 10 MG IVP (06:43)
[2022-12-22] MEDS: citric acid-sodium citrate 30 mL UDC PO (06:43)
--- NOTE | 2022-12-22 07:00 | PM.OPHPUD ---
Labor & Delivery H&P Update Date of Procedure: December 22, 2022 Date H&P Performed: 12/20/22 H&P update information: I have reviewed H&P completed within last 30 days, I have examined patient prior to procedure and Changes to prior documentation as noted here Admission Diagnosis: Planned procedure: Operation Date: 12/22/22 07:00 Proposed Procedures p Section Repeat 68612,O34.219(Not Applicable) - Chandra Turner MD
[2022-12-22] MEDS: ceFAZolin 2,000 MG in sodium chloride 0.9% (plus) 50 ML 100 MG IV (07:10)
--- NOTE | 2022-12-22 08:44 | PM.OP ---
Operative Report Date of procedure: December 22, 2022 Pre-op diagnosis: Current . Previous delivery. Post-op diagnosis: Same as above Procedure done: Repeat low-transverse delivery Surgeon: Chandra Turner MD Estimated blood loss (mL): 300 IV fluids (mL): 1,500 Urine output (mL): 100 Complications: None Procedure: After assuring informed consent, the patient was taken to the operating room and anesthesia was initiated. She was placed in the dorsal supine position with a left lateral tilt. The abdomen was prepped and draped in the usual sterile manner. A time-out procedure was performed. A Pfannenstiel skin incision was made with the scalpel and carried through to the underlying layer of fascia with the Bovie. The fascia was nicked in the midline and the incision extended laterally with the Mcdonough scissors. The superior aspect of the fascial incision was then grasped with Cecil clamps and elevated and the underlying rectus muscle dissected off bluntly and sharp with mcdonough scissors dense adhesions. Attention was then turned to the inferior aspect of the incision which, in similar fashion, was grasped and tented up with Cecil clamps and the rectus muscle dissected bluntly. The rectus muscles were then in the midline and the peritoneum identified, tented up and entered sharply with Metzenbaum scissors. The peritoneal incision was then extended superiorly and inferiorly with good visualization of the bladder. The Noé O retractor was then inserted and the vesicouterine peritoneum identified, grasped with pickups and entered sharply with Metzenbaum scissors. This incision was then extended laterally and the bladder flap created digitally. The uterus incised in a low transverse fashion with the scalpel. The uterine incision was then extended with the bandage scissors. The was then delivered in the cephalic presentation atraumatically . The nose and the mouth were suctioned with bulb and the cord clamped and cut. The cord was normal and had three vessels. Amniotic fluid was clear. The placenta was then removed manually and the uterus exteriorized and cleared of all clots and debris. The uterine incision was repaired with 0 Vicryl in a running-locked fashion. A second layer of the same suture was used to obtain excellent hemostasis. The gutters were cleared of all clots. The uterus was then returned to the abdomen. The rectus muscles were approximated with 3-0 chromic gut. The fascia was reapproximated with 0 Vicryl in an interrupted running fashion. The skin was closed with Insorb?s subcuticular absorbable bayron. Exparel was infused at incision site for pain management. The patient tolerated the procedure well. The sponge, lap and needle counts were correct times three. The patient was given antibiotics intravenously before incision.
[2022-12-22] MEDS: dextrose 5%-lactated ringers 1,000 ML 125 ML IV (12:08)
[2022-12-22] MEDS: ketorolac 30 mg/mL INJ IVP ×2 (12:14→20:01)
--- NOTE | 2022-12-22 17:18 | ANE.PACU2 ---
Inpatient post-anesthesia follow up: Airway intact: Yes Vital signs: Temperature 96.4 F Pulse Rate 80 Respiratory Rate 16 Blood Pressure 90/56 Pulse Oximetry 99 Oxygen Delivery Me thod Room Air Oxygen Flow Rate Fraction of Inspir ed Oxygen Hydration adequate: Yes Nausea and vomiting: No Pain level: 1 Mental status: Baseline
[2022-12-22] MEDS: docusate sodium 100 mg Capsule PO (20:01)
[2022-12-22 21:04] LABS: Hematocrit 35.5 % (37.0-47.0); Hemoglobin 11.9 g/dL (11.5-15.3); Mean Corpuscular HGB Conc 33.5 g/dL (30.0-36.0); Mean Corpuscular Hemoglobin 31.6 pg (28.0-34.0); Mean Corpuscular Volume 94.4 fl (81-99); Mean Platelet Volume 11.6 fL (7.4-10.4); Platelet Count 173 10^3/cmm (130-400); Red Blood Count 3.76 10^6/uL (4.1-5.3); Red Cell Distribution Width 13.4 % (12.1-15.1); White Blood Count 8.3 10^3/uL (4.0-10.0)
[2022-12-23 03:39] VITALS: BP 101/59; PULSE 72
[2022-12-23] MEDS: ketorolac 30 mg/mL INJ IVP (03:50)
--- NOTE | 2022-12-23 08:08 | PM.PN ---
Subjective Subjective: Mrs. Ying 37-year-old female is status post repeat low-transverse delivery postoperative day 1 Vitals/I&O/Wt Last Vital Signs Temp 96.4 F L 12/22/22 05:21 Pulse 72 12/23/22 03:39 Resp 16 12/22/22 12:22 BP 101/59 12/23/22 03:39 Pulse Ox 99 12/22/22 09:15 O2 Del Method 12/22/22 09:15 12/22/22 12/23/22 12/23/22 22:59 06:59 14:59 Intake Total 1500 / 1650 Output Total 850 / 1150 Balance 650 / 500 Weight last 48 hrs Weight 82.1 kg Weight 127.459 kg Physical Exam Narrative: GA: Alert and oriented ?3. HEENT: WNL. Heart: Regular rate and rhythm. Lungs: Clear to auscultation bilaterally. Abdomen: Bowel sounds present, nontender, minimal tenderness, incision clean and dry, no redness, pain or edema. Uterine fundus below umbilicus. No Fundal Tenderness. 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 Urinary Catheter Management: Olivas Latex: Cath Placed During This Visit: yes, but has since been removed by the nurse Reason for Continuing Indwelling Catheter: Decision to DC Catheter Urinary Catheter Date of Insertion: 12/22/22 Urinary Catheter Time of Insertion: 07:27 Date Urinary Catheter Removed: 12/22/22 Time Urinary Catheter Discontinued: 19:10 Data 12/22/22 20:41 A&P Assessment and plan (1) Status post repeat low transverse section: Mrs. Ying is status post primary light repeat low-transverse delivery postoperative day 1. Afebrile and hemodynamically stable. Tolerating diet well. Ambulating without difficulty. Pain well under control. Plan Continue postop observation Attestations Medical Necessity Statement*: My professional opinion per admitting diagnosis Coding Level of Care Code Acute Code for Chg Fwd Diagnoses Status post repeat low transverse section Z98.891
[2022-12-23] MEDS: lactated ringers 1,000 ML 125 ML IV (08:37)
[2022-12-23] MEDS: docusate sodium 100 mg Capsule PO ×2 (08:56→20:29)
[2022-12-23] MEDS: acetaminophen 325 mg Tablet 650 MG PO (08:56)
[2022-12-23] MEDS: prenatal vitamin Capsule 1 CAP PO (08:56)
[2022-12-23 10:25] VITALS: BP 104/69; PULSE 64; RESP 16; TEMP 36.8; O2SAT 98
--- NOTE | 2022-12-23 10:30 | PC.NURSE ---
Patient up to ambulate OBGYN floor without assistance. MARIAN RN
--- NOTE | 2022-12-23 11:45 | PC.NURSE ---
Patient states she has passed gas. MARIAN MCLEOD
[2022-12-23] MEDS: ibuprofen 800 mg tablet PO ×2 (13:56→20:29)
[2022-12-23 15:02] VITALS: BP 108/66; PULSE 80; RESP 15; TEMP 36.7; O2SAT 95
[2022-12-23 20:33] VITALS: BP 101/53; PULSE 72; TEMP 36.1
[2022-12-24 04:00] VITALS: BP 108/62; PULSE 64; RESP 16; TEMP 36.8; O2SAT 99
--- NOTE | 2022-12-24 08:37 | PM.OBGYDC ---
Discharge Providers RESEARCH PHLEBOTOMIST Date of Admission: 12/22/22 05:04 Date of Discharge: 12/24/22 Attending Provider at Admission: Chandra Turner MD Attending Provider at Discharge: Chandra Turner MD Primary Care Provider: Rayo Mensah DO Diagnoses at Discharge Discharge Diagnosis (1) Status post repeat low transverse section: Status: Acute Reason for Visit Reason for Visit: SCHEDULED Hospital Course Hospital Course Ms. Ying is a 37 y/o established patient with a LMP of 02/26/2022 and an EDC of 12/29/2022 based on first trimester ultrasound. Admitted at 39 weeks for repeat low-transverse delivery. delivery was performed without complication.. Observation has been uneventful. She is afebrile and hemodynamically stable postoperative day 2. Tolerating diet well. Ambulating without difficulty. Pain well under control. He was counseled regarding pelvic rest for 6 weeks (no sex, no tampons, no vaginal douches). Return to the emergency room if any fever, increased bleeding or pain. Information Peripartum Data: Infant Delivery Method: Physical Exam Narrative: GA; alert and oriented x 3 HEENT: normal Breasts: engorged Nipples - skin intact Lungs; clear to auscultation Heart: regular rhythm, no murmurs. Abd: Appropriately tender. BS+. Uterine fundus below umbilicus. No Fundal Tenderness. Incision clean and dry, no redness, pain or edema. Perineum: normal lochia. Extremities: no edema, no cyanosis, no tenderness. Urinary Catheter Management: Olivas Latex: Cath Placed During This Visit: yes, but has since been removed by the nurse Reason for Continuing Indwelling Catheter: Decision to DC Catheter Urinary Catheter Date of Insertion: 12/22/22 Urinary Catheter Time of Insertion: 07:27 Date Urinary Catheter Removed: 12/22/22 Time Urinary Catheter Discontinued: 19:10 History History History 3 Term 1 0 Miscarriages/Ectopic 1 Living Children 1 Discharge Data Studies Completed and Pending Laboratory Results WBC 8.3 10^3/uL (4.0-10.0) 12/22/22 20:41 RBC 3.76 10^6/uL (4.1-5.3) L 12/22/22 20:41 Hgb 11.9 g/dL (11.5-15.3) 12/22/22 20:41 Hct 35.5 % (37.0-47.0) L 12/22/22 20:41 MCV 94.4 fl (81-99) 12/22/22 20:41 MCH 31.6 pg (28.0-34.0) 12/22/22 20:41 MCHC 33.5 g/dL (30.0-36.0) 12/22/22 20:41 RDW 13.4 % (12.1-15.1) 12/22/22 20:41 Plt Count 173 10^3/cmm (130-400) 12/22/22 20:41 MPV 11.6 fL (7.4-10.4) H 12/22/22 20:41 Neut % (Auto) 57.1 % 12/22/22 05:30 Lymph % (Auto) 32.1 % 12/22/22 05:30 [place] % (Auto) 9.6 % 12/22/22 05:30 Eos % (Auto) 0.6 % 12/22/22 05:30 Baso % (Auto) 0.5 % 12/22/22 05:30 Neut # (Auto) 4.72 10^3/uL (1.8-7.7) 12/22/22 05:30 Lymph # (Auto) 2.7 10^3/uL (0.8-4.8) 12/22/22 05:30 [place] # (Auto) 0.8 10^3/uL (0.2-0.9) 12/22/22 05:30 Eos # (Auto) 0.1 10^3/uL (0.0-0.8) 12/22/22 05:30 Baso # (Auto) 0.0 10^3/uL (0.0-0.1) 12/22/22 05:30 Nucleated RBC % (auto) 0 % 12/22/22 05:30 Nucleated RBCs # 0.0 /100WBC 12/22/22 05:30 Vitals Last Vital Signs Temp 98.2 F 12/24/22 04:00 Pulse 64 12/24/22 04:00 Resp 16 12/24/22 04:00 BP 108/62 12/24/22 04:00 Pulse Ox 99 12/24/22 04:00 O2 Del Method 12/24/22 04:00 Discharge Plan Discharge Patient Disposition: Home Condition: Good Prescriptions: New hydrocodone-acetaminophen 5-325 mg tablet 1 tab PO Q4H PRN (Reason: pain) Qty: 30 0RF ibuprofen 800 mg tablet 800 mg PO TID PRN (Reason: pain) Qty: 60 0RF acetaminophen 325 mg capsule 325 mg PO Q4H PRN (Reason: fever or pain) Qty: 60 0RF docusate sodium [Colace] 100 mg capsule 100 mg PO BID Qty: 60 0RF Continued Gummies 400 mcg-35 mg- 25 mg-5 mg tablet,chewable 1 tab PO DAILY sertraline [Zoloft] 25 mg tablet 25 mg PO DAILY Qty: 60 2RF Discharge Orders: Discharge Order (Routine); Ordered 12/24/22 Ordered By: Chandra Turner Referrals: Chandra Turner MD [Physician] - 2 weeks Discharge Diet: Usual diet Discharge Activity: Limit activity as instructed Patient Instructions: Depression (DC), Bleeding (DC), Preeclampsia and Eclampsia After Delivery (GEN), OB [facility], OB Discharge Report, OB Food/Drug Interaction Guide, Opioid Safety, OB Home Care Activity Restrictions/Additional Instructions: 1. Please call [facility] on next working day to make your post-operative appointment in 2 weeks. 2. Please stay home until you come back to the clinic on first post-operative check up. 3. Please follow instructions on your medications CAREFULLY. 4. If you have abdominal incision, do not cover it unless dressing is necessary because of drainage. OK to shower, but avoid bath. Leave steri-strips until they fall off. If they are still on one week after surgery, you may remove them. 5. If you had vaginal surgery or vaginal repair, Dr. Turner may instruct you to take SITZ bath. 6. Yellow, blood tinged odorous vaginal discharge is usually normal after hysterectomy or vaginal surgeries. 7. No sexual intercourse, tampons, or douches until you are completely released from the post-operative care. 8. Avoid constipation by eating right and maybe using some Metamucil or Milk of Magnesia. 9. All prescription refills are given during the working hours. Please do no wait till it runs out. Call the clinic at [phone] before your medication runs out. The clinic will get in touch with your doctor to prescribe medications if necessary. 10. Please remain within 40 mile radius from our hospital because emergencies do happen now and then during the post-operative period. 11. If you have stairs at home, take one step at a time slowly and minimize the number of trips. It helps to stay in one floor for the next few days. No lifting except what you can lift by one hand until you are released from the post-operative care. 12. Driving is discouraged until you are well healed. It may be 3-4 weeks before you feel strong enough to drive. You should be able to turn and look through the rear window without pain and you should be able to push the brake pedal very hard without pain before you drive. No fast rules, but SAFETY should be your primary concern. DO NOT drive if you are on sedating medications such as narcotics. 13. Call the clinic (during working hours) to make urgent appointment or go to the Emergency room, if any of the following occurs: i. Vaginal bleeding becomes heavy, more than a period. ii. Incision becomes red and sore, or drains pus. iii. Your temperature is over 100.4 or you have chill. iv. IV site becomes red and swollen (a little ``knot?? is usually OK) v. Persistent nausea and vomiting vi. Persistent constipation or diarrhea vii. Rash or allergic reaction to medications. Discharge Attestations RESEARCH PHLEBOTOMIST Time Spent in Discharge Care*: greater than 30 min Coding Level of Care Code Acute Code for Chg Fwd Diagnoses Status post repeat low transverse section Z98.891
[2022-12-24] MEDS: docusate sodium 100 mg Capsule PO (09:00)
[2022-12-24] MEDS: ibuprofen 800 mg tablet PO (09:00)
[2022-12-24] MEDS: prenatal vitamin Capsule 1 CAP PO (09:00)
[2022-12-24] MEDS: HYDROcodone-acetaminophen 5-325 mg Tablet PO (10:21)
[2022-12-24 12:00] VITALS: BP 112/70; PULSE 78; RESP 18; TEMP 36.8
== END 2022-12-24 12:35 | disposition home or self-care (01) | DRG 788 ==
PROVIDERS: Admitting Provider Obstetrics & Gynecology; PCP Family Medicine; Visit Provider Obstetrics & Gynecology
PROC: 10D00Z1 Extraction of Products of Conception, Low, Open Approach (ICD-10-PCS; CPT 59514; principal; 2022-12-22 07:00)
DX: O34.211 Maternal care for low transverse scar from previous cesarean delivery (principal); Z3A.39 39 weeks gestation of pregnancy; Z37.0 Single live birth; O75.89 Other specified complications of labor and delivery; O28.2 Abnormal cytological finding on antenatal screening of mother
CPT/HCPCS: 36415; 51702; 59025; 59409; 85025; 85027; 96374; 96376; C9290; J0690; J1885; J2274; J2370; J2590; J2765; J3010; J3490; J7120; J7121

== ENCOUNTER → 2023-02-06 15:30 | Outpatient (BNVA) | payer BC, MEDICAID, SELFPAY | PROVIDERS: PCP Family Medicine; Visit Provider Obstetrics & Gynecology | DX: Z30.9 Encounter for contraceptive management, unspecified (principal); Z12.4 Encounter for screening for malignant neoplasm of cervix; Z98.891 History of uterine scar from previous surgery; Z30.017 Encounter for initial prescription of implantable subdermal contraceptive | CPT/HCPCS: 87624 ==

== ENCOUNTER 2023-11-02 18:16 | Emergency (ER) | payer BC, MEDICAID, SELFPAY ==
[2023-11-02 18:18] VITALS: BP 124/82; PULSE 82; RESP 16; TEMP 36.4; O2SAT 98; BMI 33.4
--- NOTE | 2023-11-02 18:18 | XRR_ITS ---
PROCEDURE INFORMATION: Exam: XR Chest Exam date and time: 11/02/2023 6:34 PM Age: 38 years old Clinical indication: Cough TECHNIQUE: Imaging protocol: Radiologic exam of the chest. Views: 1 view. COMPARISON: CR XR chest 1V portable [id number] 05/12/2022 11:14 AM FINDINGS: Lungs: Unremarkable. No consolidation. Pleural spaces: Unremarkable. No pleural effusion. No pneumothorax. Heart/Mediastinum: Unremarkable. No cardiomegaly. Bones/joints: Unremarkable. XR/XR chest 1V portable [id number] IMPRESSION: No acute findings.
--- NOTE | 2023-11-02 18:59 | W.ED.URI ---
HPI - URI/Sore Throat General: Chief Complaint: Upper Respiratory Infection Stated Complaint: sob, nasal congestion, cough Time Seen by Provider: 11/02/23 18:53 History of Present Illness: 38-year-old female comes in today for complaints of cough and congestion with some shortness of breath. Patient reports she has been ill for 5 days and today she noticed that she had more of a respiratory cough and felt a little short of breath. Patient appears nontoxic. Patient appears no acute distress. Associated symptoms: Deny abdominal pain or fever(s) Review of Systems General: Reports: 10 or more systems reviewed and unremarkable except in HPI and below Const: Denies: fever(s) ENMT: Reports: nasal discharge Resp: Reports: dyspnea and non-productive cough GI: Denies: abdominal pain Musc: Denies: neck pain or back pain Skin/Breast: Denies: rash PFSH ED PFSH: Medical History No pertinent past medical history neghx:htn,dm,thyroid,dvt/pe PCP: Surgical History H/O JEFRY Donohue- approximately 2010 S/P section Primary emergent section due to nonreassuring heart tones. Family History Brother Diabetes Mother Hypertension Other Clotting disorder Denies family history of Colon cancer Ovarian cancer Heart disease Hyperlipidemia Breast cancer Anesthesia complication Bleeding disorder Uterine cancer Thyroid condition Stroke Social History Smoking and tobacco/nicotine status: never used tobacco/nicotine Substance/Drug Use: never Physical Exam Const: COMMON NORMALS: alert HENMT: COMMON NORMALS: normocephalic HEAD & SCALP: normocephalic Neck/C-Spine: COMMON NORMALS: full ROM Resp: COMMON NORMALS: normal respiratory effort Cardio: COMMON NORMALS: regular rate and regular rhythm RATE: regular rate RHYTHM: regular rhythm GI: COMMON NORMALS: non-tender Extremity: COMMON NORMALS: normal to inspection Neuro: SENSORIUM/ORIENTATION: Yes alert Skin: COMMON NORMALS: turgor normal GENERAL SKIN EXAM: turgor normal Course Vital Signs: Vital signs: Vital Signs Temperature 97.5 F L 12/21/23 20:10 Pulse Rate 82 11/02/23 20:10 Respiratory Rate 16 11/02/23 20:10 Blood Pressure 124/82 11/02/23 20:10 Pulse Oximetry 98 11/02/23 20:10 Oxygen Delivery Me thod Room Air 11/02/23 18:18 MDM - URI/Sore Throat Medical Decision Making 38-year-old female comes in today for complaints of shortness of breath with a cough. Patient has been ill for 5 days. Patient appears nontoxic. Patient is breast-feeding. On exam lungs are clear to auscultation. Skin is warm and dry. Vital signs are normal. Differential diagnosis includes bronchitis, pneumonia, upper respiratory infection. Chest x-ray was normal. Swabs for influenza and COVID both negative. Reviewed exam with mother recommended treatment for bronchitis and follow-up as needed. Mother reported understanding. Lab Data Radiology Impressions Chest X-Ray 11/02/23 18:18 IMPRESSION: No acute findings. Laboratory Results Influenza Type A Ag negative (Negative) 11/02/23 19:05 Influenza Type B Ag negative (Negative) 11/02/23 19:05 SARS-CoV-2 Ag (Rapid) negative (Negative) 11/02/23 19:05 All radiology interpretation(s) finalized by discharge Discharge Plan Discharge Patient Disposition: Home Clinical Impression: Bronchitis Condition: Stable Prescriptions: No Action Gummies 400 mcg-35 mg- 25 mg-5 mg tablet,chewable 1 tab PO DAILY sertraline 100 mg tablet 100 mg PO DAILY Qty: 90 2RF ibuprofen 800 mg tablet 800 mg PO TID PRN (Reason: pain) Qty: 60 0RF Discharge Orders: Discharge ED (Routine); Ordered 11/02/23 Ordered By: Alexey Pemberton Referrals: Rayo Mensah DO [Primary Care Provider] - Discharge Diet: Usual diet Discharge Activity: Increase activity as tolerated Patient Instructions: Acute Bronchitis (ED) Coding Level of Care Code ED Musical Instrument Mechanic for Champ Costa
[2023-11-02 19:37] LABS: Influenza A by IFA negative (Negative); Influenza B by IFA negative (Negative); SARS Covid-2 Antigen negative (Negative)
[2023-11-02 20:10] VITALS: BP 124/82; PULSE 82; RESP 16; TEMP 36.4; O2SAT 98
== END 2023-11-02 20:11 | disposition home or self-care (01) ==
PROVIDERS: Emergency Medicine; Emergency Provider Nurse Practitioner Family; PCP Family Medicine
DX: J40 Bronchitis, not specified as acute or chronic (principal); Z11.52 Encounter for screening for COVID-19
CPT/HCPCS: 71045; 87426; 87804; 99284

== ENCOUNTER → 2024-03-11 10:49 | Outpatient (BNVA) | payer BC, SELFPAY | PROVIDERS: PCP Family Medicine; Visit Provider Obstetrics & Gynecology | DX: Z12.4 Encounter for screening for malignant neoplasm of cervix (principal) | CPT/HCPCS: 87624 ==

== ENCOUNTER 2024-07-30 17:52 | Outpatient (CLI) | payer BC, SELFPAY ==
--- NOTE | 2024-07-30 19:06 | XRR_ITS ---
PROCEDURE INFORMATION: Exam: XR Lumbosacral Spine Exam date and time: 07/30/2024 7:15 PM Age: 39 years old Clinical indication: Low back pain; Additional info: Lower back pain TECHNIQUE: Imaging protocol: Radiologic exam of the lumbosacral spine. Views: 2 or 3 views. COMPARISON: [place] [id number] 12/14/2022 10:37 AM FINDINGS: Bones/joints: No acute fracture. Vertebral body heights are maintained. Spinal alignment is intact. Mild degenerative disc disease and facet arthropathy at L5-S1. Soft tissues: Unremarkable. XR/XR lumbar spine 2-3V* [id number] IMPRESSION: No acute osseous findings.
== END 2024-07-30 17:53 | disposition home or self-care (01) ==
DX: M54.50 Low back pain, unspecified (principal)
CPT/HCPCS: 72100

== ENCOUNTER → 2025-07-26 11:55 | Outpatient (BNVA) | payer BC, SELFPAY | PROVIDERS: Visit Provider Emergency Medicine | DX: R39.9 Unspecified symptoms and signs involving the genitourinary system (principal) | CPT/HCPCS: 81000 ==

== ENCOUNTER → 2025-07-31 18:41 | Outpatient (BNVA) | payer BC, SELFPAY | PROVIDERS: Visit Provider Nurse Practitioner | DX: J02.9 Acute pharyngitis, unspecified (principal) | CPT/HCPCS: 87880 ==

== ENCOUNTER 2025-08-03 08:05 | Emergency (ER) | payer BC, SELFPAY ==
[2025-08-03 08:15] VITALS: BP 124/77; PULSE 91; RESP 18; TEMP 36.7; O2SAT 96; BMI 31.4
--- NOTE | 2025-08-03 08:21 | W.ED.SKABFB ---
HPI - Skin/Abscess/Foreign Bdy General: Chief complaint: Skin/Abscess/Foreign Body Stated complaint: Blisters on both feet and hands Time Seen by Provider: 08/03/25 08:09 Source: patient Mode of arrival: ambulatory Limitations: no limitations History of Present Illness: 40-year-old female who states she had a sore throat since Monday states that she diagnosed with strep started on antibiotics states she now has blisters to her hand and feet still has slight sore throat. She has had low-grade fevers states she had multiple sick contacts at home including her children. Associated symptoms: Deny chills, fever(s), nausea or vomiting Related Data Home Medications ?Medication ?Instructions ?Recorded ?Confirmed famotidine 20 mg tablet 20 mg PO DAILY 07/24/24 07/31/25 Previous Rx's ?Medication ?Instructions ?Recorded bupropion HCl 300 mg 24 hr tablet, 300 mg PO QAM #90 tabs 02/10/25 extended release sertraline 50 mg tablet 50 mg PO DAILY Depression #90 tabs 02/10/25 ibuprofen 800 mg tablet 800 mg PO TID PRN pain #60 tabs 06/04/25 buspirone 15 mg tablet 15 mg PO TID #60 tabs 07/10/25 semaglutide (weight loss) 0.5 0.5 mg (0.5 mL) SUBCUT Q7D #2 mL 07/22/25 mg/0.5 mL subcutaneous pen injector levofloxacin 500 mg tablet 500 mg PO DAILY 7 days #7 tabs 07/26/25 promethazine-DM 6.25 mg-15 mg/5 mL 10 ml PO Q6H PRN cough #473 mL 07/26/25 oral syrup amoxicillin 500 mg tablet 500 mg PO BID 10 days #20 tabs 07/31/25 Allergies Allergy/AdvReac Type Severity Reaction Status Date / Time No Known Allergies Allergy Verified 07/31/25 18:40 Review of Systems Const: Denies: fever(s), chills, body aches or change in appetite ENMT: Reports: throat pain; Denies: dental pain Card: Denies: chest pain Resp: Denies: dyspnea GI: Denies: abdominal pain, nausea, vomiting or diarrhea Musc: Denies: neck pain or back pain Skin/Breast: Reports: rash PFSH ED PFSH: Medical History Lower back pain Obesity (BMI 30-39.9) Dizziness and giddiness Viral syndrome No pertinent past medical history neghx:htn,dm,thyroid,dvt/pe PCP: Surgical History H/O JEFRY Donohue- approximately 2010 S/P section Primary emergent section due to nonreassuring heart tones. Family History Brother Diabetes Mother Hypertension Other Clotting disorder Denies family history of Colon cancer Ovarian cancer Heart disease Hyperlipidemia Breast cancer Anesthesia complication Bleeding disorder Uterine cancer Thyroid disease Stroke Social History Smoking and tobacco/nicotine status: never used tobacco/nicotine Substance/Drug Use: never Physical Exam Const: COMMON NORMALS: no acute distress, patient oriented x3 and healthy appearing HENMT: COMMON NORMALS: normocephalic and atraumatic HEAD & SCALP: normocephalic and atraumatic OTHER: posterior oropharynx erythema Eye: COMMON NORMALS: conjunctivae normal CONJUNCTIVA: Yes conjunctivae normal Neck/C-Spine: COMMON NORMALS: full ROM and supple Chest: COMMONS NORMALS: normal inspection of the chest Resp: COMMON NORMALS: normal respiratory effort, No retractions, No use of accessory muscles and clear to auscultation bilaterally AUSCULTATION: clear to auscultation bilaterally Cardio: COMMON NORMALS: regular rate, regular rhythm and No murmurs present (Cardio) RATE: regular rate RHYTHM: regular rhythm Extremity: COMMON NORMALS: normal to inspection and full ROM Neuro: COMMON NORMALS: patient oriented x3, moves all extremities and no focal motor deficits Psych: COMMON NORMALS: mental status grossly normal, Normal thought process present and cooperative THOUGHT PROCESS: Normal thought process present Skin: COMMON NORMALS: no wounds NARRATIVE SKIN EXAM: Small blisters noted on feet and hands Course Vital Signs: Vital signs: Vital Signs Temperature 98.1 F 08/03/25 08:15 Pulse Rate 91 08/03/25 08:15 Respiratory Rate 18 08/03/25 08:15 Blood Pressure 124/77 08/03/25 08:15 Pulse Oximetry 96 08/03/25 08:15 Oxygen Delivery Me thod Room Air 08/03/25 08:15 MDM - Skin/Abscess/Foreign Bdy Medicial Decision Making Patient presents here with sore throat along with rash to hands and feet consistent with [id number]. Did inform patient this is a virus she is to drink plenty of fluids take Motrin she is well-appearing here stable for discharge follow-up with PCP return if worsening. Medical Records I reviewed the patient's medical records. No radiology studies performed this visit Discharge Plan Discharge Patient Disposition: Home Clinical Impression: Hand, foot and mouth disease Condition: Stable Prescriptions: No Action famotidine 20 mg tablet 20 mg PO DAILY promethazine-DM 6.25-15 mg/5 mL syrup 10 ml PO Q6H PRN (Reason: cough) Qty: 473 0RF levofloxacin 500 mg tablet 500 mg PO DAILY 7 Days Qty: 7 0RF amoxicillin 500 mg tablet 500 mg PO BID 10 Days Qty: 20 0RF bupropion HCl 300 mg tablet extended release 24 hr 300 mg PO QAM Qty: 90 1RF sertraline 50 mg tablet 50 mg PO DAILY Qty: 90 1RF ibuprofen 800 mg tablet 800 mg PO TID PRN (Reason: pain) Qty: 60 2RF buspirone 15 mg tablet 15 mg PO TID Qty: 60 1RF semaglutide (weight loss) 0.5 mg/0.5 mL pen injector 0.5 mg SUBCUT Q7D Qty: 2 0RF Discharge Orders: Discharge ED (Routine); Ordered 08/03/25 Ordered By: Kandis Prado Referrals: Ina Rodas NP [Primary Care Provider, Family Practice] - 4-7 days Discharge Diet: Advance as tolerated Discharge Activity: Resume usual activity Patient Instructions: Hand, Foot, and Mouth Disease (ED) Print Language: Khmer Coding Level of Care 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
== END 2025-08-03 08:45 | disposition home or self-care (01) ==
PROVIDERS: Emergency Provider Emergency Medicine
DX: B08.4 Enteroviral vesicular stomatitis with exanthem (principal)
CPT/HCPCS: 99282

== ENCOUNTER → 2025-08-21 16:13 | Outpatient (BNVA) | payer BC, SELFPAY | DX: E66.9 Obesity, unspecified (principal); Z68.39 Body mass index [BMI] 39.0-39.9, adult | CPT/HCPCS: 80053; 82306; 83001; 83002; 84146; 84403; 84443; 85025 ==

== ENCOUNTER 2025-08-22 20:49 | Emergency (ER) | payer BC, SELFPAY ==
[2025-08-22 21:03] VITALS: BP 127/86; PULSE 94; RESP 16; TEMP 36.7; O2SAT 99; BMI 31.9
[2025-08-22 21:42] LABS: Hematocrit 42.2 % (36-47); Hemoglobin 14.30 g/dL (11.27-16.99); Mean Corpuscular HGB Conc 33.9 g/dL (30-55); Mean Corpuscular Hemoglobin 32.1 pg (27-33); Mean Corpuscular Volume 94.6 fl (85-98); Nucleated Red Blood Cells % 0 %; Platelet Count 167 10^3/cmm (157-399); Red Blood Count 4.46 10^6/uL (3.85-5.65); White Blood Count 7.17 10^3/uL (3.29-11.43)
[2025-08-22 21:56] VITALS: BP 132/91; PULSE 87; RESP 18; O2SAT 98
[2025-08-22 22:05] VITALS: BP 139/99; PULSE 80; RESP 16; O2SAT 96
[2025-08-22 22:31] LABS: Alanine Aminotransferase 25 U/L (0-33); Albumin Level 4.2 g/dL (3.5-5.2); Alkaline Phosphatase 76 U/L (35-105); Aspartate Amino Transferase 21 U/L (0-32); Blood Urea Nitrogen 8 mg/dL (6-20); Calcium 8.9 mg/dL (8.5-10.5); Carbon Dioxide 17 mmol/L (22-29); Chloride 105 mmol/L (98-107); Creatinine Clr Calc Pharmacy 119.0977; Globulin 3.2 g/dL (1.3-4.6); Glucose 100 mg/dL (65-115); Osmolality Calculated 282 mOsm/kg (285-295); Sodium 137 mmol/L (136-145); Total Protein 7.4 g/dL (6.6-8.7)
--- NOTE | 2025-08-22 22:33 | W.ED.RECABL ---
HPI - Recheck/Abnormal Lab/Rx General: Chief Complaint: Recheck/Abnormal Lab/Rx Stated Complaint: High Potasium Time Seen by Provider: 08/22/25 21:50 History of Present Illness: Patient presents to the emergency department for evaluation of significantly elevated potassium level of 7.6 mmol/L found on laboratory testing yesterday. The patient reports feeling fatigued and experiencing heart palpitations today, though she attributes the palpitations to her anxiety. She denies any prior history of hyperkalemia. The patient reports that she takes Wegovy and increased her dosage yesterday, which resulted in nausea throughout the day. Her primary care physician, Dr. Ina Rodas, reportedly confirmed with the laboratory that there were no sample integrity issues that could have falsely elevated the potassium result. Related Data Previous Rx's ?Medication ?Instructions ?Recorded ibuprofen 800 mg tablet 800 mg PO TID PRN pain #60 tabs 06/04/25 bupropion HCl 300 mg 24 hr tablet, 300 mg PO QAM #90 tabs 08/21/25 extended release buspirone 7.5 mg tablet 7.5 mg PO DAILY #30 tabs 08/21/25 semaglutide (weight loss) 1 mg/0.5 1 mg (0.5 mL) SUBCUT Q7D #2 mL 08/21/25 mL subcutaneous pen injector sertraline 50 mg tablet 50 mg PO DAILY Depression #90 tabs 08/21/25 Allergies Allergy/AdvReac Type Severity Reaction Status Date / Time No Known Allergies Allergy Verified 08/22/25 21:05 [facility] ED PFSH: Medical History Lower back pain Obesity (BMI 30-39.9) Dizziness and giddiness Viral syndrome No pertinent past medical history neghx:htn,dm,thyroid,dvt/pe PCP: Surgical History H/O JEFRY Donohue- approximately 2010 S/P section Primary emergent section due to nonreassuring heart tones. Family History Brother Diabetes Mother Hypertension Other Clotting disorder Denies family history of Colon cancer Ovarian cancer Heart disease Hyperlipidemia Breast cancer Anesthesia complication Bleeding disorder Uterine cancer Thyroid disease Stroke Social History Smoking and tobacco/nicotine status: never used tobacco/nicotine Substance/Drug Use: never Physical Exam Const: COMMON NORMALS: no acute distress GENERAL APPEARANCE: cooperative; not ill appearing and not frail appearing HENMT: COMMON NORMALS: normocephalic, atraumatic and Normal external nose present HEAD & SCALP: normocephalic and atraumatic FACE & SINUS: normal facial exam and face symmetric NOSE: Normal external nose present Eye: COMMON NORMALS: Equal, round and reactive pupils present and EOMs intact bilaterally PUPIL: Yes Equal, round and reactive pupils present Neck/C-Spine: GENERAL: Yes trachea midline Chest: CHEST: Yes Symmetrical chest wall rise Resp: COMMON NORMALS: normal respiratory effort, No retractions, No use of accessory muscles and clear to auscultation bilaterally AUSCULTATION: clear to auscultation bilaterally Cardio: COMMON NORMALS: regular rate and regular rhythm RATE: regular rate RHYTHM: regular rhythm GI: COMMON NORMALS: Normal to inspection, nondistended, normoactive bowel sounds present Extremity: COMMON NORMALS: no pedal edema Neuro: RAYSA COMA SCALE: document GCS findings Raysa coma scale eye opening: Spontaneous Dennis coma scale verbal response: Orientated Dennis coma scale motor response: Obey commands Raysa coma scale total score: 15 SENSORY EXAM: Yes extremities (intact) Psych: COMMON NORMALS: speech normal SPEECH: Yes normal speech Skin: COMMON NORMALS: no rashes or lesions noted GENERAL SKIN EXAM: no rashes or lesions noted Course Vital Signs: Vital signs: Vital Signs Temperature 98.1 F 08/22/25 21:03 Pulse Rate 90 08/22/25 23:30 Respiratory Rate 16 08/22/25 22:05 Blood Pressure 133/83 08/22/25 23:30 Pulse Oximetry 98 08/22/25 23:30 Oxygen Delivery Me thod Room Air 08/22/25 21:03 MDM - Recheck/Abnormal Lab/Rx Medical Decision Making Laboratories repeated. Potassium is 3.5. Patient is relatively asymptomatic. She is stable for discharge. She is to return for any symptoms. Lab Data 08/22/25 21:21 08/22/25 21:21 Laboratory Results WBC 7.17 10^3/uL (3.29-11.43) 08/22/25 21:21 RBC 4.46 10^6/uL (3.85-5.65) 08/22/25 21:21 Hgb 14.30 g/dL (11.27-16.99) 08/22/25 21:21 Hct 42.2 % (36-47) 08/22/25 21:21 MCV 94.6 fl (85-98) 08/22/25 21:21 MCH 32.1 pg (27-33) 08/22/25 21: MCHC 33.9 g/dL (30-55) 08/22/25 21:21 RDW 12.9 % (12.1-15.1) 08/22/25 21:21 Plt Count 167 10^3/cmm (157-399) D 08/22/25 21:21 MPV 11.5 fL (7.4-10.4) H 08/22/25 21:21 Neut % (Auto) 51.3 % 08/22/25 21:21 Lymph % (Auto) 37.7 % 08/22/25 21:21 [place] % (Auto) 8.8 % 08/22/25 21:21 Eos % (Auto) 1.1 % 08/22/25 21: Baso % (Auto) 0.7 % 08/22/25 21: Neut # (Auto) 3.68 10^3/uL (1.8-7.7) 08/22/25 21:21 Lymph # (Auto) 2.7 10^3/uL (0.8-4.8) 08/22/25 21:21 [place] # (Auto) 0.6 10^3/uL (0.2-0.9) 08/22/25 21:21 Eos # (Auto) 0.1 10^3/uL (0.0-0.8) 08/22/25 21:21 Baso # (Auto) 0.1 10^3/uL (0.0-0.1) 08/22/25 21:21 Nucleated RBC % (auto) 0 % 08/22/25 21:21 Nucleated RBCs # 0.0 /100WBC 08/22/25 21:21 Sodium 137 mmol/L (136-145) 08/22/25 21:21 Potassium 3.5 mmol/L (3.5-5.1) 08/22/25 21:21 Chloride 105 mmol/L (98-107) 08/22/25 21:21 Carbon Dioxide 17 mmol/L (22-29) L 08/22/25 21:21 Anion Gap 18.5 (5-19) 08/22/25 21:21 BUN 8 mg/dL (6-20) 08/22/25 21:21 Creatinine 0.6 mg/dL (0.5-0.9) 08/22/25 21:21 GFR Calculation 111.9 mL/min (90-130) 08/22/25 21:21 Glucose 100 mg/dL (65-115) 08/22/25 21:21 Calculated Osmolality 282 mOsm/kg (285-295) L 08/22/25 21:21 Calcium 8.9 mg/dL (8.5-10.5) 08/22/25 21:21 Total Bilirubin 0.4 mg/dL (0.15-1.2) 08/22/25 21:21 AST 21 U/L (0-32) 08/22/25 21:21 ALT 25 U/L (0-33) 08/22/25 21:21 Alkaline Phosphatase 76 U/L (35-105) 08/22/25 21:21 Total Protein 7.4 g/dL (6.6-8.7) 08/22/25 21:21 Albumin 4.2 g/dL (3.5-5.2) 08/22/25 21:21 Globulin 3.2 g/dL (1.3-4.6) 08/22/25 21:21 No radiology studies performed this visit Discharge Plan Discharge Patient Disposition: Home Clinical Impression: Hx of hyperkalemia Condition: Stable Prescriptions: No Action buspirone 7.5 mg tablet 7.5 mg PO DAILY Qty: 30 3RF bupropion HCl 300 mg tablet extended release 24 hr 300 mg PO QAM Qty: 90 1RF sertraline 50 mg tablet 50 mg PO DAILY Qty: 90 1RF semaglutide (weight loss) 1 mg/0.5 mL pen injector 1 mg SUBCUT Q7D Qty: 2 1RF ibuprofen 800 mg tablet 800 mg PO TID PRN (Reason: pain) Qty: 60 2RF Discharge Orders: Discharge ED (Routine); Ordered 08/22/25 Ordered By: Richardson Dunbar Referrals: Ina Rodas NP [Primary Care Provider, [facility]] Patient Instructions: Opioid Safety, Pain Management, Patient Portal & Marly Instructions Activity Restrictions/Additional Instructions: It appears your high potassium was likely a lab error. Return for any problems such as palpitations, muscle cramps, chest discomfort, trouble breathing, any other concerning symptoms. Print Language: Czech Coding Level of Care Code ED General Agent for Champ Costa
[2025-08-22 22:43] LABS: Anion Gap 18.5 (5-19); Potassium 3.5 mmol/L (3.5-5.1)
[2025-08-22 23:30] VITALS: BP 133/83; PULSE 90; O2SAT 98
== END 2025-08-22 23:31 | disposition home or self-care (01) ==
PROVIDERS: Emergency Provider Emergency Medicine
DX: E78.5 Hyperlipidemia, unspecified (principal)
CPT/HCPCS: 36415; 80053; 85025; 99283

== ENCOUNTER → 2025-10-20 09:46 | Outpatient (BNVA) | payer BC, SELFPAY | DX: Z32.01 Encounter for pregnancy test, result positive (principal); Z3A.01 Less than 8 weeks gestation of pregnancy; F41.9 Anxiety disorder, unspecified; F32.A Depression, unspecified | CPT/HCPCS: 81025; 84702; 84703 ==

== ENCOUNTER 2025-11-07 15:30 | Emergency (ER) | payer BC, SELFPAY ==
[2025-11-07 15:54] VITALS: BP 106/66; PULSE 110; RESP 17; TEMP 36.8; O2SAT 100; BMI 52.0
--- NOTE | 2025-11-07 16:14 | XRR_ITS ---
PROCEDURE INFORMATION: Exam: XR Chest Exam date and time: 11/07/2025 5:05 PM Age: 40 years old Clinical indication: Cough and fever TECHNIQUE: Imaging protocol: Radiologic exam of the chest. Views: 1 view. COMPARISON: CR (CHEST, ) 11/02/2023 6:34 PM FINDINGS: Lungs: No pulmonary consolidation. Pleural spaces: No pneumothorax. No pleural effusion. Heart/Mediastinum: Unremarkable. No cardiomegaly. Bones/joints: Unremarkable. XR/XR chest 1V portable [id number] IMPRESSION: No acute cardiopulmonary abnormality.
--- NOTE | 2025-11-07 17:15 | W.ED.COVID ---
HPI - COVID General: Chief Complaint: COVID symptoms Stated Complaint: sinus pressure / congestion / fever Time Seen by Provider: 11/07/25 16:59 Source: patient Mode of arrival: ambulatory Limitations: no limitations Triage information: Has fever, cough or shortness of breath. Exposure to COVID + person last 14 days History of Present Illness: Patient is a 40-year-old female stating she is 6 weeks and has been having upper respiratory symptoms for few weeks now. Reports congestion, rhinorrhea, coughing, and intermittent fevers at home. States that she has had multiple sick contacts at home. No fever at this time is minimally tachycardic and actively coughing. Tells me that the cough has been dry. Does not feel short of breath, no chest pain. Does not report any vaginal bleeding or lower abdominal pain. COVID 19 common symptoms: positive fever(s), non-productive cough and nasal congestion; negative chills, productive cough, dyspnea, fatigue, headache(s), throat pain, nausea, vomiting or diarrhea COVID 19 other sytmptoms: negative chest pain COVID Results: SARS-CoV-2 Ag (Rapid), (Negative) negative 11/02/23, 19:05 SARS-CoV-2 (PCR), (NOT DETECT) Not detected 05/12/22, 11:07 Coronavirus 229E (PCR), (NOT DETECT) Not detected 05/12/22, 11:07 Related Data Previous Rx's ?Medication ?Instructions ?Recorded bupropion HCl 300 mg 24 hr tablet, 300 mg PO QAM #90 tabs 08/21/25 extended release sertraline 50 mg tablet 50 mg PO DAILY Depression #90 tabs 08/21/25 cholecalciferol (vitamin D3) 10 10 mcg PO DAILY #30 tabs 08/25/25 mcg (400 unit) tablet Allergies Allergy/AdvReac Type Severity Reaction Status Date / Time No Known Allergies Allergy Verified 10/20/25 09:32 Review of Systems General: Reports: 10 or more systems reviewed and unremarkable except in HPI and below Const: Reports: fever(s); Denies: chills or fatigue Eyes: Denies: change in vision ENMT: Reports: nasal discharge and nasal congestion; Denies: throat pain or ear or mastoid pain Card: Denies: chest pain, palpitations, swelling of feet/ankles or lightheadedness Resp: Reports: non-productive cough and wheezing; Denies: dyspnea or productive cough GI: Denies: abdominal pain, nausea, vomiting, diarrhea or constipation : Denies: flank pain, difficulty voiding, dysuria or urinary frequency Musc: Denies: neck pain, back pain or joint pain Skin/Breast: Denies: rash Neuro: Denies: headache(s), numbness in extremities or weakness in extremities PFSH ED PFSH: Medical History Lower back pain Obesity (BMI 30-39.9) Dizziness and giddiness Viral syndrome No pertinent past medical history neghx:htn,dm,thyroid,dvt/pe PCP: Surgical History H/O JEFRY Donohue- approximately 2010 S/P section Primary emergent section due to nonreassuring heart tones. Family History Brother Diabetes Mother Hypertension Other Clotting disorder Denies family history of Colon cancer Ovarian cancer Heart disease Hyperlipidemia Breast cancer Anesthesia complication Bleeding disorder Uterine cancer Thyroid disease Stroke Social History Smoking and tobacco/nicotine status: never used tobacco/nicotine Substance/Drug Use: never Physical Exam Const: COMMON NORMALS: no acute distress, patient oriented x3 and no limitations GENERAL APPEARANCE: cooperative, comfortable and well developed ORIENTATION/CONSCIOUSNESS: Yes awake, Yes oriented to person, Yes oriented to place and Yes oriented to time OTHER: Nontoxic HENMT: COMMON NORMALS: normocephalic, atraumatic and hearing grossly normal bilaterally HEAD & SCALP: normocephalic and atraumatic THROAT: posterior oropharynx normal Eye: COMMON NORMALS: Equal, round and reactive pupils present, EOMs intact bilaterally and conjunctivae normal CONJUNCTIVA: Yes conjunctivae normal PUPIL: Yes Equal, round and reactive pupils present Neck/C-Spine: COMMON NORMALS: full ROM and supple Resp: COMMON NORMALS: normal respiratory effort, No retractions, No use of accessory muscles and clear to auscultation bilaterally EFFORT & INSPECTION: Yes Actively coughing non-productive AUSCULTATION: clear to auscultation bilaterally Cardio: COMMON NORMALS: regular rate, regular rhythm, No clicks present (Cardio), No murmurs present (Cardio) and No rub (Cardio) RATE: regular rate RHYTHM: regular rhythm GI: COMMON NORMALS: Normal to inspection, nondistended, normoactive bowel sounds present, Soft to palpation and non-tender AUSCULTATION: Yes normoactive bowel sounds PALPATION: Yes Soft to palpation RECTAL EXAM: deferred Extremity: COMMON NORMALS: normal to inspection, full ROM and capillary refill normal Neuro: COMMON NORMALS: patient oriented x3, moves all extremities, no focal motor deficits and no sensory deficits noted SENSORIUM/ORIENTATION: Yes oriented to person, Yes oriented to place and Yes oriented to time Skin: COMMON NORMALS: no rashes or lesions noted GENERAL SKIN EXAM: no rashes or lesions noted Course Vital Signs: Vital signs: Vital Signs Temperature 98.2 F 11/07/25 15:54 Pulse Rate 110 H 11/07/25 15:54 Respiratory Rate 17 11/07/25 15:54 Blood Pressure 106/66 11/07/25 15:54 Pulse Oximetry 100 11/07/25 15:54 Oxygen Delivery Me thod Room Air 11/07/25 15:54 [facility] Medical Decision Making Patient presented with viral symptoms, 6 weeks this was her most concerning complaint. No vaginal bleeding or lower abdominal pain to report. Has been coughing and having upper respiratory symptoms now for weeks but worsening over the past couple days after reported sick contact exposure from home. Actively dry coughing but no adventitious heart or lung sounds. CBC and CMP unremarkable, procalcitonin negative. Chest x-ray showing no focal consolidation. Swab has been pending patient is agreeable to discharge home will be called with results of the COVID flu RSV swab. She is counseled on medications that are safe during , informed follow-up with her primary care provider and to return with any new or worsening. Patient agrees with this plan at this time Lab Data 11/07/25 17:19 11/07/25 17:19 Radiology Impressions Chest X-Ray 11/07/25 16:14 IMPRESSION: No acute cardiopulmonary abnormality. Laboratory Results WBC 7.10 10^3/uL (3.29-11.43) 11/07/25 17:19 RBC 4.19 10^6/uL (3.85-5.65) 11/07/25 17:19 Hgb 13.20 g/dL (11.27-16.99) 11/07/25 17:19 Hct 39.1 % (36-47) 11/07/25 17:19 MCV 93.3 fl (85-98) 11/07/25 17:19 MCH 31.5 pg (27-33) 11/07/25 17:19 MCHC 33.8 g/dL (30-55) 11/07/25 17:19 RDW 12.7 % (12.1-15.1) 11/07/25 17:19 Plt Count 272 10^3/cmm (157-399) 11/07/25 17:19 MPV 9.4 fL (7.4-10.4) 11/07/25 17:19 Neut % (Auto) 65.0 % 11/07/25 17:19 Lymph % (Auto) 19.2 % 11/07/25 17:19 [place] % (Auto) 14.2 % 11/07/25 17:19 Eos % (Auto) 0.8 % 11/07/25 17:19 Baso % (Auto) 0.4 % 11/07/25 17:19 Neut # (Auto) 4.61 10^3/uL (1.8-7.7) 11/07/25 17:19 Lymph # (Auto) 1.4 10^3/uL (0.8-4.8) 11/07/25 17:19 [place] # (Auto) 1.0 10^3/uL (0.2-0.9) H 11/07/25 17:19 Eos # (Auto) 0.1 10^3/uL (0.0-0.8) 11/07/25 17:19 Baso # (Auto) 0.0 10^3/uL (0.0-0.1) 11/07/25 17:19 Nucleated RBC % (auto) 0 % 11/07/25 17:19 Nucleated RBCs # 0.0 /100WBC 11/07/25 17:19 Sodium 134 mmol/L (136-145) L 11/07/25 17:19 Potassium 3.3 mmol/L (3.5-5.1) L 11/07/25 17:19 Chloride 98 mmol/L (98-107) 11/07/25 17:19 Carbon Dioxide 24 mmol/L (22-29) 11/07/25 17:19 Anion Gap 15.3 (5-19) 11/07/25 17:19 BUN 7 mg/dL (6-20) 11/07/25 17:19 Creatinine 0.6 mg/dL (0.5-0.9) 11/07/25 17:19 GFR Calculation 111.9 mL/min (90-130) 11/07/25 17:19 Glucose 83 mg/dL (65-115) 11/07/25 17:19 Calculated Osmolality 275 mOsm/kg (285-295) L 11/07/25 17:19 Calcium 8.9 mg/dL (8.5-10.5) 11/07/25 17:19 Total Bilirubin 0.3 mg/dL (0.15-1.2) 11/07/25 17:19 AST 21 U/L (0-32) 11/07/25 17:19 ALT 30 U/L (0-33) 11/07/25 17:19 Alkaline Phosphatase 77 U/L (35-105) 11/07/25 17:19 Total Protein 7.0 g/dL (6.6-8.7) 11/07/25 17:19 Albumin 3.9 g/dL (3.5-5.2) 11/07/25 17:19 Globulin 3.1 g/dL (1.3-4.6) 11/07/25 17:19 Procalcitonin 0.10 ng/mL (0-0.5) 11/07/25 17:19 SARS-CoV-2 Ag (Rapid), (Negative) negative 11/02/23, 19:05 SARS-CoV-2 (PCR), (NOT DETECT) Not detected 05/12/22, 11:07 Coronavirus 229E (PCR), (NOT DETECT) Not detected 05/12/22, 11:07 All radiology interpretation(s) finalized by discharge Discharge Plan Discharge Patient Disposition: Home Clinical Impression: Viral infection, Less than 8 weeks gestation of Condition: Stable Prescriptions: No Action bupropion HCl 300 mg tablet extended release 24 hr 300 mg PO QAM Qty: 90 1RF sertraline 50 mg tablet 50 mg PO DAILY Qty: 90 1RF cholecalciferol (vitamin D3) 10 mcg (400 unit) tablet 10 mcg PO DAILY Qty: 30 6RF Discharge Orders: Discharge ED (Routine); Ordered 11/07/25 Ordered By: Will Jewell Referrals: Ina Rodas NP [Primary Care Provider, [facility]] Patient Instructions: Patient Portal & Marly Instructions Activity Restrictions/Additional Instructions: Discharge Instructions: Viral Syndrome with Allergies in Early Your Diagnosis You were evaluated today for symptoms of a viral illness after exposure to someone who was sick. You also appear to have allergies contributing to your symptoms. Your laboratory tests, including blood work and viral testing, are reassuring. You are 6 weeks , and your is stable at this time. Home Care Instructions For Your Viral Symptoms: - Get plenty of rest and stay well-hydrated with water and clear fluids - Use saline nasal rinses or sprays as often as needed to help with nasal congestion - these are completely safe during - For fever, body aches, or discomfort, you may take acetaminophen (Tylenol) as directed on the package. Avoid ibuprofen (Advil, Motrin) and aspirin during - Use a cool mist humidifier in your bedroom to help with congestion - Your viral symptoms should improve within 5-7 days For Your Allergy Symptoms: - Continue using saline nasal rinses frequently - If needed for allergies, you may take cetirizine (Zyrtec) or loratadine (Claritin) - both are considered safe during - You may use Flonase for congestion, as this is also generally considered safe in . - Avoid known allergens when possible Medications to Avoid: - Do not use ibuprofen (Advil, Motrin), aspirin, or naproxen (Aleve) - Avoid decongestants containing pseudoephedrine or phenylephrine during your first trimester - Do not take combination cold medications without checking with your doctor first When to Seek Immediate Medical Attention Call 911 or go to the emergency department if you experience: - Severe abdominal or pelvic pain - Heavy vaginal bleeding (soaking through a pad in one hour) - Dizziness, fainting, or feeling like you might pass out - Severe headache with vision changes - Difficulty breathing or chest pain - Fever above 101?F (38.3?C) that does not improve with acetaminophen When to Contact Your Bank Consultant Contact your SQL SERVER BI DEVELOPER office within 24 hours if you experience: - Any vaginal bleeding or spotting - Moderate to severe cramping - Persistent vomiting that prevents you from keeping down fluids - Symptoms that worsen or do not improve after 7 days - New or concerning symptoms Follow-Up Care - Continue your regular care appointments as scheduled - Make sure you are taking a vitamin daily - If you have not yet established care, please call to schedule an appointment within the next 1-2 weeks Additional Information Most viral illnesses are self-limited and will resolve on their own. Your reassuring laboratory tests today suggest you do not have a bacterial infection requiring antibiotics. The treatments recommended above are safe for you and your developing baby. If you have any questions or concerns, please contact your atmospheric drier tender's office or return to the emergency department if needed. Print Language: Macedonian Coding Level of Care Code ED Pattern Clerk for Champ Costa
[2025-11-07 17:35] LABS: Hematocrit 39.1 % (36-47); Hemoglobin 13.20 g/dL (11.27-16.99); Mean Corpuscular HGB Conc 33.8 g/dL (30-55); Mean Corpuscular Hemoglobin 31.5 pg (27-33); Mean Corpuscular Volume 93.3 fl (85-98); Nucleated Red Blood Cells % 0 %; Platelet Count 272 10^3/cmm (157-399); Red Blood Count 4.19 10^6/uL (3.85-5.65); White Blood Count 7.10 10^3/uL (3.29-11.43)
[2025-11-07 17:58] LABS: Alanine Aminotransferase 30 U/L (0-33); Albumin Level 3.9 g/dL (3.5-5.2); Alkaline Phosphatase 77 U/L (35-105); Anion Gap 15.3 (5-19); Aspartate Amino Transferase 21 U/L (0-32); Blood Urea Nitrogen 7 mg/dL (6-20); Calcium 8.9 mg/dL (8.5-10.5); Carbon Dioxide 24 mmol/L (22-29); Chloride 98 mmol/L (98-107); Globulin 3.1 g/dL (1.3-4.6); Glucose 83 mg/dL (65-115); Osmolality Calculated 275 mOsm/kg (285-295); Potassium 3.3 mmol/L (3.5-5.1); Sodium 134 mmol/L (136-145); Total Protein 7.0 g/dL (6.6-8.7)
[2025-11-07 18:00] VITALS: O2SAT 98
[2025-11-07 18:02] LABS: Procalcitonin 0.10 ng/mL (0-0.5)
[2025-11-07 18:44] VITALS: BP 95/63; PULSE 98; O2SAT 100
[2025-11-07 18:48] LABS: Respiratory Syncytial Virus Ce NEGATIVE (Negative)
[2025-11-07 19:11] LABS: SARS-CoV-2 PCR Positive (Negative)
--- NOTE | 2025-11-07 19:15 | PC.NURSE ---
Attempted to call pt to tell her that she is COVID +, left message for pt to call the ER to get her test results.
== END 2025-11-07 18:45 | disposition home or self-care (01) ==
PROVIDERS: Emergency Medicine; Physician Assistant; Emergency Provider Physician Assistant
DX: O26.891 Other specified pregnancy related conditions, first trimester (principal); Z3A.08 8 weeks gestation of pregnancy; B34.9 Viral infection, unspecified
CPT/HCPCS: 36415; 71045; 80053; 84145; 85025; 87637; 99284